=== PATIENT | male | born 1960 | race Caucasian/White ===

== ENCOUNTER 2017-01-01 01:27 | Inpatient (IN) | payer OTHER ==
[2017-01-01] VITALS (10 sets, daily range): BP systolic 116–182; BP diastolic 67–79; PULSE 49–77; RESP 15–20; TEMP 97–98.5; O2SAT 96–100
[~2017-01-01] VITALS: Ht 185.4 cm; Wt 95.9 kg
[2017-01-01] MEDS ORDERED: ONDANSETRON HCL 4 MG/2 ML VIAL IVP ONE (01:45)
[2017-01-01] MEDS ORDERED: SODIUM CHLORIDE 0.9% FLUSH 10 ML FLUSH IV FLUSH PRN ×2 (01:45→05:30)
[2017-01-01] MEDS ORDERED: ALUMINUM/MAGNESIUM/SIMETH 30 ML CUP PO ONE (01:45)
[2017-01-01] MEDS ORDERED: LIDOCAINE VISCOUS 2% SOLN 15 ML UDC PO ONE (01:45)
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
[2017-01-01 02:26] LABS: AUTOMATED NEUTROPHIL # 12.6 TH/MM3 (1.8-7.7); BASOPHIL # 0.1 TH/MM3 (0-0.2); BASOPHIL % 0.8 % (0.0-2.0); EOSINOPHIL # 0.1 TH/MM3 (0-0.4); EOSINOPHIL % 0.5 % (0.0-4.0); HEMATOCRIT 43.5 % (39.0-51.0); HEMO FLAGS DIFF FINAL; LYMPH % 4.8 % (9.0-44.0); LYMPHOCYTE # 0.7 TH/MM3 (1.0-4.8); MEAN CELL VOLUME 84.9 FL (80.0-100.0); MEAN CORPUSCULAR HEMOGLOBIN 30.3 PG (27.0-34.0); MEAN CORPUSCULAR HGB CONC 35.7 % (32.0-36.0); MONO % 6.4 % (0.0-8.0); NEUT % 87.5 % (16.0-70.0); PLATELET COUNT 157 TH/MM3 (150-450); RED BLOOD COUNT 5.13 MIL/MM3 (4.50-5.90); RED CELL DISTRIBUTION WIDTH 12.7 % (11.6-17.2); WHITE BLOOD COUNT 14.4 TH/MM3 (4.0-11.0)
[2017-01-01 02:44] LABS: ALT (GPT) 53 U/L (12-78); ANION GAP 9 MEQ/L (5-15); AST (GOT) 20 U/L (15-37); BICARBONATE 26.8 MEQ/L (21.0-32.0); BLOOD UREA NITROGEN 22 MG/DL (7-18); CHLORIDE 105 MEQ/L (98-107); GLOMERULAR FILTRATION RATE 76 ML/MIN (>89); POTASSIUM 3.9 MEQ/L (3.5-5.1); SODIUM (NA) 141 MEQ/L (136-145)
[2017-01-01 02:48] LABS: ALKALINE PHOSPHATASE 55 U/L (45-117); TOTAL BILIRUBIN ADULT 0.5 MG/DL (0.2-1.0)
[2017-01-01] MEDS ORDERED: SODIUM CHLOR 0.9% 1000 ML INJ 1,000 ML IV ONE (03:00)
--- NOTE | 2017-01-01 04:53 | RADRPT ---
EXAM DATE/TIME: 01/01/2017 03:54 [place] COMPARISON: No previous studies available for comparison. INDICATIONS : Severe epigastric pain. Elevated lipase. ORAL CONTRAST: No oral contrast ingested. RADIATION DOSE: 13.28 CTDIvol (mGy) MEDICAL HISTORY : None SURGICAL HISTORY : None. ENCOUNTER: Initial ACUITY: 1 day PAIN SCALE: 10/10 LOCATION: Epigastric. TECHNIQUE: Volumetric scanning of the abdomen and pelvis was performed. Using automated exposure control and ad justment of the mA and/or kV according to patient size, radiation dose was kept as low as reasonably achievable to obtain optimal diagnostic quality images. DICOM format image data is available electro nically for review and comparison. FINDINGS: LOWER LUNGS: The visualized lower lungs are clear. LIVER: Diffuse decreased density throughout the liver characteristic of steatosis. No focal lesions seen on this noncontrast study. No calcified gallstones. SPLEEN: Normal size without lesion. PANCREAS: There is induration of the fat about the tail of the pancreas and in the fat between the spleen and s tomach. There is also fluid tracking along the margin of the anterior pararenal space on the left si de extending into the left paracolic gutter. The no dilation of the pancreatic duct. KIDNEYS: No evidence of hydronephrosis on either side. Symmetric renal size. 2 mm nonobstructing stone lower pole left kidney. No calcifications along the course of either ureter. ADRENAL GLANDS: Within normal limits. VASCULAR: There is no aortic aneurysm. BOWEL/MESENTERY: No dilated loops of small or large bowel. ABDOMINAL WALL: Within normal limits. RETROPERITONEUM: There are a few perigastric lymph nodes measuring up to 1 cm in size. Central mesenteric lymph nodes measure up to 1 cm. BLADDER: No wall thickening or mass. REPRODUCTIVE: Within normal limits. INGUINAL: There is no lymphadenopathy or hernia. MUSCULOSKELETAL: Within normal limits for patient age. CONCLUSION: 1. Induration of the fat surrounding the tail the pancreas with some fluid tracking along the anterio r pararenal space into the left paracolic gutter. Findings do suggest pancreatitis. 2. Nonspecific mildly prominent lymph nodes in the perigastric and central mesentery. 3. Steatosis of the liver. Jonathan Gaona MD on January 01, 2017 at 4:42 Board Certified Radiologist. This report was verified electronically.
[2017-01-01] MEDS ORDERED: NALOXONE HCL 0.4 MG/ML AMP IV PRN (05:30)
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
[2017-01-01] MEDS: SODIUM CHLOR 0.9% 1000 ML INJ 1,000 ML IV SCH ×2 (06:08→15:19)
[2017-01-01] MEDS: HYDROmorphone HCL PF 1 MG/ML VIAL IV PUSH PRN ×3 (06:09→14:24)
[2017-01-01] MEDS: ENOXAPARIN SODIUM 40 MG/0.4 ML SYRINGE SQ SCH (06:51)
--- NOTE | 2017-01-01 08:23 | HHI.PR ---
Subjective Remarks looks fairly comfortable. no nausea or vomiting. abdominal pain is fairly controlled. Objective Vitals Vital Signs Date Time Temp Pulse Resp B/P Pulse Ox O2 Delivery O2 Flow Rate FiO2 01/01/17 06:40 98.0 63 18 130/76 96 01/01/17 06:38 58 01/01/17 05:59 66 18 143/73 97 01/01/17 01:51 18 100 Room Air 01/01/17 01:27 98.5 77 20 182/79 100 Room Air Result Diagram: 01/01/17 0155 01/01/17 0155 Imaging Last Impressions Abdomen/Pelvis CT 01/01/175 Signed Impressions: Service Date/Time: Sunday, January 01, 2017 03:54 - CONCLUSION: 1. Induration of the fat surrounding the tail the pancreas with some fluid tracking along the anterior pararenal space into the left paracolic gutter. Findings do suggest pancreatitis. 2. Nonspecific mildly prominent lymph nodes in the perigastric and central mesentery. 3. Steatosis of the liver. Jonathan Gaona MD Objective Remarks GENERAL: This is a well-nourished, well-developed patient, in no apparent distress. CARDIOVASCULAR: Regular rate and regular rhythm with systolic murmur in LSB RESPIRATORY: Clear to auscultation. Breath sounds equal bilaterally. No wheezes , rales, or rhonchi. GASTROINTESTINAL: Abdomen soft, mild generalized tenderness, nondistended. Normal, active bowel sounds MUSCULOSKELETAL: Extremities without clubbing, cyanosis, or edema. NEURO: Alert & Oriented x4 to person, place, time, situation. Moves all ext x4 Procedures none Medications and IVs Current Medications Ondansetron HCl (Zofran Inj) 4 mg ONCE ONCE IVP Last administered on 02:00; Start 01/01/17 at 01:45; Stop 01/01/17 at 01:46; Status DC Sodium Chloride (NS Flush) 2 ml UNSCH PRN IV FLUSH FLUSH AFTER USING IV ACCESS ; Start 01/01/17 at 01:45; Stop 01/01/17 at 05:22; Status DC Al Hydrox/Mg Hydrox/Simethicone (Mag-Al Plus Susp Liq) 30 ml ONCE ONCE PO Last administered on 01/01/17 01:52; Start 01/01/17 at 01:45; Stop 01/01/17 at 01:46; Status DC Lidocaine HCl 15 ml 15 ml ONCE ONCE PO Last administered on 01/01/17 01:52; Start 01/01/17 at 01:45; Stop 01/01/17 at 01:46; Status DC Sodium Chloride 1,000 ml @ 999 mls/hr BOLUS ONCE IV Last administered on 01/01 03:01; Start 01/01/17 at 03:00; Stop 01/01/17 at 04:00; Status DC Sodium Chloride (NS 1000 ml Inj) 1,000 ml @ 100 mls/hr Q10H IV Last administered on 01/01/17 06:08; Start 01/01/17 at 05:19 Sodium Chloride (NS Flush) 2 ml UNSCH PRN IV FLUSH FLUSH AFTER USING IV ACCESS ; Start 01/01/17 at 05:30 Sodium Chloride (NS Flush) 2 ml BID IV FLUSH ; Start 01/01/17 at 09:00 Naloxone HCl (Narcan Inj) 0.4 mg UNSCH PRN IV SEE LABEL COMMENTS; Start at 05:30 Hydromorphone HCl (Dilaudid Pf Inj) 0.5 mg Q4H PRN IV PUSH pain >5 Last administered on 01/01/17 06:09; Start 01/01/17 at 06:00 Enoxaparin Sodium (Lovenox Inj) 40 mg Q24H SQ Last administered on 01/01/17 06 :51; Start 01/01/17 at 06:15 A/P Assessment and Plan A/P Severe Pancreatitis due to alcohol abuse - Lipase . - IVF hydration with NS at 100 cc/hr - clear liquid diet - Dilaudid 0.5 mg IV q4h PRN pain - monitor vital signs q4h alcohol abuse start on CIWA protocol and thiamine- counselled on drinking cessation Heart murmur, systolic - 2D echocardiogram to assess cardiac structure and function in a patient reporting shortness of breath and requiring aggressive IVF hydration for pancreatitis DVT prophylaxis - Lovenox 40 mg subq q24h Kyle Andrade MD Jan 01, 2017 08:23
[2017-01-01] MEDS ORDERED: LORazepam 2 MG/ML VIAL IV PUSH PRN ×4 (08:30)
[2017-01-01] MEDS ORDERED: LORazepam 1 MG TAB PO PRN (08:30)
[2017-01-01] MEDS ORDERED: FLUMAZENIL 0.5 MG/5 ML VIAL IV PUSH PRN (08:30)
[2017-01-01] MEDS ORDERED: LORazepam 2 MG TAB PO PRN (08:30)
[2017-01-01] MEDS: SODIUM CHLORIDE 0.9% FLUSH 10 ML FLUSH IV FLUSH SCH ×2 (09:00→21:00)
[2017-01-01] MEDS: THIAMINE INJ 100 MG in SODIUM CHLORIDE 0.9% INJ 100 ML IV SCH (10:06)
[2017-01-01] MEDS ORDERED: DOCUSATE SODIUM 100 MG CAP PO PRN (11:00)
[2017-01-01] MEDS: ONDANSETRON HCL 4 MG/2 ML VIAL IV PUSH PRN (14:31)
--- NOTE | 2017-01-01 16:03 | ECHRPT ---
Indication: Shortness of breath, Cardiac murmur, unspecified CONCLUSIONS Normal left ventricular size. Wall thickness is normal. The left ventricular systolic function is grossly normal on limited imaging. No regional wall motion abnormalities are present. Left ventricular diastolic function parameters are normal. Appears to be tricuspid aortic valve. Mild aortic insufficiency. The inferior vena cava is dilated. There is greater than 50% respiratory change in dimension of the inferior vena cava (normal). BP: 130 / 76 HR: 63 Rhythm: Sinus MEASUREMENTS (Male / Female) Normal Values Technical Quality:Poor 2D ECHO LV Diastolic Diameter PLAX 5.7 cm 4.2 - 5.9 / 3.9 - 5.3 cm LV Systolic Diameter PLAX 3.6 cm IVS Diastolic Thickness 1.0 cm 0.6 - 1.0 / 0.6 - 0.9 cm LVPW Diastolic Thickness 1.0 cm 0.6 - 1.0 / 0.6 - 0.9 cm LV Relative Wall Thickness 0.3 LVOT Diameter 2.2 cm Aortic Root Diameter 3.3 cm LA Systolic Diameter LX 3.8 cm 3.0 - 4.0 / 2.7 - 3.8 cm M-MODE AV Cusp Separation MM 2.2 cm DOPPLER AV Peak Velocity 174.0 cm/s AV Peak Gradient 12.1 mmHg AV Mean Gradient 6.0 mmHg AV Velocity Time Integral 33.9 cm LVOT Peak Velocity 162.0 cm/s LVOT Peak Gradient 10.5 mmHg LVOT Velocity Time Integral 31.2 cm LVOT Cardiac Index 3267.8 cm/minm AV Area Cont Eq vti 3.5 cm AV Area Cont Eq pk 3.5 cm Mitral E Point Velocity 107.0 cm/s Mitral A Point Velocity 68.6 cm/s Mitral E to A Ratio 1.6 LV E' Lateral Velocity 17.8 cm/s Mitral E to LV E' Lateral Ratio 6.0 LV E' Septal Velocity 10.8 cm/s Mitral E to LV E' Septal Ratio 9.9 TR Peak Velocity 209.0 cm/s TR Peak Gradient 17.5 mmHg PV Peak Velocity 68.4 cm/s PV Peak Gradient 1.9 mmHg FINDINGS LEFT VENTRICLE Normal left ventricular size. Wall thickness is normal. The left ventricular systolic function is grossly normal on limited imaging. No regional wall motion abnormalities are present. Left ventricular diastolic function parameters are normal. RIGHT VENTRICLE Normal right ventricular size and systolic function. LEFT ATRIUM The left atrial size is mildly dilated. RIGHT ATRIUM The right atrial size is mildly dilated. AORTIC VALVE Appears to be tricuspid aortic valve. Mild aortic insufficiency. TRICUSPID VALVE Structurally normal tricuspid valve. There is trace tricuspid valve regurgitation. Normal estimated pulmonary pressures. VESSELS The inferior vena cava is dilated. There is greater than 50% respiratory change in dimension of the inferior vena cava (normal). PERICARDIUM No pericardial effusion. Luc Feliz MD (Electronically Signed) Final Date:01 January 2017 16:02
[2017-01-01] MEDS ORDERED: PROCHLORPERAZINE INJ 10 MG/2 ML VIAL IV PRN (18:00)
--- NOTE | 2017-01-01 23:13 | EKG ---
Date Performed: 01/01/2017 Time Performed: 01:52:14 PTAGE: 56 years EKG: Sinus rhythm NORMAL ECG NO PREVIOUS TRACING DOCTOR: Dandre Ford Interpretating Date/Time 01/01/2017 23:11:15
[2017-01-02] VITALS: BP 121/70; PULSE 58; RESP 17; TEMP 97.9; O2SAT 96
[2017-01-02] MEDS: SODIUM CHLOR 0.9% 1000 ML INJ 1,000 ML IV SCH ×3 (02:06→21:09)
[2017-01-02] MEDS: ACETAMINOPHEN 325 MG TAB PO PRN ×3 (02:26→21:10)
[2017-01-02] MEDS: ENOXAPARIN SODIUM 40 MG/0.4 ML SYRINGE SQ SCH (06:22)
--- NOTE | 2017-01-02 07:45 | HHI.PR ---
Subjective Remarks resting comfortably with no distress. abdominal pain has improved. no nausea, vomiting or other complaints. Objective Vitals Vital Signs Date Time Temp Pulse Resp B/P Pulse Ox O2 Delivery O2 Flow Rate FiO2 01/02/17 00:00 97.9 58 17 121/70 96 01/01/17 20:16 55 01/01/17 20:00 97.6 56 17 135/77 97 01/01/17 16:30 97.3 49 16 126/72 97 01/01/17 12:00 97.3 49 15 116/67 99 01/01/17 08:00 97.0 57 16 148/68 97 I/O 01/01/17 01/01/17 01/01/17 01/02/17 01/02/17 01/02/17 07:00 15:00 23:00 07:00 15:00 23:00 Intake Total 210 ml 420 ml 1200 ml Balance 210 ml 420 ml 1200 ml Intake Oral 210 ml 420 ml IV Total 1200 ml # Voids 2 1 1 Result Diagram: 01/01/17 0155 01/01/17 0155 Imaging Last Impressions Abdomen/Pelvis CT 01/01/17 0255 Signed Impressions: Service Date/Time: Sunday, January 01, 2017 03:54 - CONCLUSION: 1. Induration of the fat surrounding the tail the pancreas with some fluid tracking along the anterior pararenal space into the left paracolic gutter. Findings do suggest pancreatitis. 2. Nonspecific mildly prominent lymph nodes in the perigastric and central mesentery. 3. Steatosis of the liver. Jonathan Gaona MD Objective Remarks GENERAL: This is a well-nourished, well-developed patient, in no apparent distress. CARDIOVASCULAR: Regular rate and regular rhythm with systolic murmur in LSB RESPIRATORY: Clear to auscultation. Breath sounds equal bilaterally. No wheezes , rales, or rhonchi. GASTROINTESTINAL: Abdomen soft, minimal generalized tenderness, nondistended. Normal, active bowel sounds MUSCULOSKELETAL: Extremities without clubbing, cyanosis, or edema. NEURO: Alert & Oriented x4 to person, place, time, situation. Moves all ext x4 Procedures none Medications and IVs Current Medications Ondansetron HCl (Zofran Inj) 4 mg ONCE ONCE IVP Last administered on t 02:00; Start 01/01/17 at 01:45; Stop 01/01/17 at 01:46; Status DC Sodium Chloride (NS Flush) 2 ml UNSCH PRN IV FLUSH FLUSH AFTER USING IV ACCESS ; Start 01/01/17 at 01:45; Stop 01/01/17 at 05:22; Status DC Al Hydrox/Mg Hydrox/Simethicone (Mag-Al Plus Susp Liq) 30 ml ONCE ONCE PO Last administered on 01/01/17 01:52; Start 01/01/17 at 01:45; Stop 01/01/17 at 01:46; Status DC Lidocaine HCl 15 ml 15 ml ONCE ONCE PO Last administered on 01/01/17 01:52; Start 01/01/17 at 01:45; Stop 01/01/17 at 01:46; Status DC Sodium Chloride 1,000 ml @ 999 mls/hr BOLUS ONCE IV Last administered on 01/01 03:01; Start 01/01/17 at 03:00; Stop 01/01/17 at 04:00; Status DC Sodium Chloride (NS 1000 ml Inj) 1,000 ml @ 100 mls/hr Q10H IV Last administered on 01/02/17 02:06; Start 01/01/17 at 05:19 Sodium Chloride (NS Flush) 2 ml UNSCH PRN IV FLUSH FLUSH AFTER USING IV ACCESS ; Start 01/01/17 at 05:30 Sodium Chloride (NS Flush) 2 ml BID IV FLUSH ; Start 01/01/17 at 09:00 Naloxone HCl (Narcan Inj) 0.4 mg UNSCH PRN IV SEE LABEL COMMENTS; Start at 05:30 Hydromorphone HCl (Dilaudid Pf Inj) 0.5 mg Q4H PRN IV PUSH pain >5 Last administered on 01/01/17 14:24; Start 01/01/17 at 06:00 Enoxaparin Sodium (Lovenox Inj) 40 mg Q24H SQ Last administered on 01/02/17 06 :22; Start 01/01/17 at 06:15 Ondansetron HCl (Zofran Inj) 4 mg Q8H PRN IV PUSH NAUSEA Last administered on 14:31; Start 01/01/17 at 08:15 Flumazenil (Romazicon Inj) 0.2 mg Q1M PRN IV PUSH SEE LABEL COMMENTS; Start at 08:30 Lorazepam (Ativan) 1 mg Q4H PRN PO CIWA 8 - 10; Start 01/01/17 at 08:30 Lorazepam (Ativan Inj) 1 mg Q4H PRN IV PUSH CIWA 8 - 10; Start 01/01/17 at 08: 30 Lorazepam (Ativan) 2 mg Q2H PRN PO CIWA 11-14; Start 01/01/17 at 08:30 Lorazepam (Ativan Inj) 2 mg Q2H PRN IV PUSH CIWA 11-14; Start 01/01/17 at 08:30 Lorazepam (Ativan Inj) 2 mg Q1H PRN IV PUSH CIWA 15-20; Start 01/01/17 at 08:30 Lorazepam 2 mg 2 mg Q15M PRN IV PUSH CIWA > 20; Start 01/01/17 at 08:30 Thiamine HCl/ Sodium Chloride (Thiamine Inj/NS Inj) 101 ml @ 101 mls/hr DAILY IV Last administered on 01/01/17 10:06; Start 01/01/17 at 10:00 Docusate Sodium (Colace) 100 mg BID PRN PO CONSTIPATION Last administered on 14:24; Start 01/01/17 at 11:00 Prochlorperazine Edisylate (Compazine Inj) 5 mg Q8H PRN IV SEE LABEL COMMENTS Last administered on 01/01/17 18:00; Start 01/01/17 at 18:00 Acetaminophen (Tylenol) 650 mg Q4H PRN PO fever >101, headaches Last administered on 01/02/17 02:26; Start 01/02/17 at 02:30 A/P Assessment and Plan A/P Severe Pancreatitis due to alcohol abuse- clinically improving. - IVF hydration with NS at 100 cc/hr - will advance the diet slowly - Dilaudid 0.5 mg IV q4h PRN pain - monitor vital signs q4h alcohol abuse start on CIWA protocol and thiamine- counselled on drinking cessation Heart murmur, systolic - 2D echocardiogram with normal LV function and no regional wall motion abnormalities DVT prophylaxis - Lovenox 40 mg subq q24h Discharge Planning possible dc home tomorrow if stable. Kyle Andrade MD Jan 02, 2017 07:45
[2017-01-02 08:00] VITALS: BP 124/70; PULSE 53; RESP 18; TEMP 98.1; O2SAT 98
[2017-01-02] MEDS: THIAMINE INJ 100 MG in SODIUM CHLORIDE 0.9% INJ 100 ML IV SCH (08:00)
[2017-01-02] MEDS: SODIUM CHLORIDE 0.9% FLUSH 10 ML FLUSH IV FLUSH SCH ×2 (08:01→21:00)
[2017-01-02 08:10] LABS: BASOPHIL % 0.4 % (0.0-2.0); EOSINOPHIL # 0.2 TH/MM3 (0-0.4); EOSINOPHIL % 2.1 % (0.0-4.0); HEMATOCRIT 41.4 % (39.0-51.0); HEMO FLAGS DIFF FINAL; LYMPH % 17.7 % (9.0-44.0); LYMPHOCYTE # 1.8 TH/MM3 (1.0-4.8); MEAN CELL VOLUME 85.8 FL (80.0-100.0); MEAN CORPUSCULAR HEMOGLOBIN 30.5 PG (27.0-34.0); MEAN CORPUSCULAR HGB CONC 35.5 % (32.0-36.0); NEUT % 68.8 % (16.0-70.0); PLATELET COUNT 137 TH/MM3 (150-450); RED BLOOD COUNT 4.82 MIL/MM3 (4.50-5.90); RED CELL DISTRIBUTION WIDTH 12.9 % (11.6-17.2); WHITE BLOOD COUNT 10.2 TH/MM3 (4.0-11.0)
[2017-01-02 08:22] VITALS: PULSE 54
[2017-01-02 08:50] LABS: ALKALINE PHOSPHATASE 52 U/L (45-117); ALT (GPT) 42 U/L (12-78); ANION GAP 7 MEQ/L (5-15); AST (GOT) 17 U/L (15-37); BICARBONATE 26.6 MEQ/L (21.0-32.0); BLOOD UREA NITROGEN 12 MG/DL (7-18); CHLORIDE 106 MEQ/L (98-107); GLOMERULAR FILTRATION RATE 109 ML/MIN (>89); POTASSIUM 3.7 MEQ/L (3.5-5.1); SODIUM (NA) 140 MEQ/L (136-145); TOTAL BILIRUBIN ADULT 0.9 MG/DL (0.2-1.0)
[2017-01-02 12:00] VITALS: BP 124/57; PULSE 62; RESP 18; TEMP 98.2; O2SAT 96
[2017-01-02] MEDS: ONDANSETRON HCL 4 MG/2 ML VIAL IV PUSH PRN ×2 (12:31→23:55)
[2017-01-02] MEDS: HYDROmorphone HCL PF 1 MG/ML VIAL IV PUSH PRN ×3 (12:42→23:55)
[2017-01-02 14:00] VITALS: BP 121/62; PULSE 56; RESP 16; TEMP 98.7; O2SAT 98
[2017-01-02 20:46] VITALS: BP 121/66; PULSE 56; RESP 16; TEMP 98; O2SAT 97
[2017-01-03] VITALS: BP 137/65; PULSE 60; RESP 16; TEMP 98.3; O2SAT 96
[2017-01-03] MEDS: HYDROmorphone HCL PF 1 MG/ML VIAL IV PUSH PRN (05:25)
[2017-01-03] MEDS: SODIUM CHLOR 0.9% 1000 ML INJ 1,000 ML IV SCH (05:27)
[2017-01-03] MEDS: ENOXAPARIN SODIUM 40 MG/0.4 ML SYRINGE SQ SCH ×2 (05:27→05:30)
[2017-01-03 08:00] VITALS: BP 124/71; PULSE 52; RESP 18; TEMP 98.6; O2SAT 98
[2017-01-03] MEDS: THIAMINE INJ 100 MG in SODIUM CHLORIDE 0.9% INJ 100 ML IV SCH (08:18)
[2017-01-03] MEDS: ACETAMINOPHEN 325 MG TAB PO PRN ×2 (08:21→12:57)
--- NOTE | 2017-01-03 08:24 | HHI.PR ---
Subjective Remarks in no distress. has mild abdominal pain- no nausea or vomiting. afebrile. Objective Vitals Vital Signs Date Time Temp Pulse Resp B/P Pulse Ox O2 Delivery O2 Flow Rate FiO2 01/03/17 00:00 98.3 60 16 137/65 96 01/02/17 20:46 98.0 56 16 121/66 97 01/02/17 14:00 98.7 56 16 121/62 98 01/02/17 12:00 98.2 62 18 124/57 96 I/O 01/02/17 01/02/17 01/02/17 01/03/17 01/03/17 01/03/17 07:00 15:00 23:00 07:00 15:00 23:00 Intake Total 1200 ml 480 ml 1440 ml Balance 1200 ml 480 ml 1440 ml Intake Oral 480 ml 240 ml IV Total 1200 ml 1200 ml # Voids 1 2 Result Diagram: 01/02/17 0652 01/02/17 0652 Imaging Last Impressions Abdomen/Pelvis CT 01/01/17 0255 Signed Impressions: Service Date/Time: Sunday, January 01, 2017 03:54 - CONCLUSION: 1. Induration of the fat surrounding the tail the pancreas with some fluid tracking along the anterior pararenal space into the left paracolic gutter. Findings do suggest pancreatitis. 2. Nonspecific mildly prominent lymph nodes in the perigastric and central mesentery. 3. Steatosis of the liver. Jonathan Gaona MD Objective Remarks GENERAL: This is a well-nourished, well-developed patient, in no apparent distress. CARDIOVASCULAR: Regular rate and regular rhythm with systolic murmur in LSB RESPIRATORY: Clear to auscultation. Breath sounds equal bilaterally. No wheezes , rales, or rhonchi. GASTROINTESTINAL: Abdomen soft, minimal generalized tenderness, nondistended. Normal, active bowel sounds MUSCULOSKELETAL: Extremities without clubbing, cyanosis, or edema. NEURO: Alert & Oriented x4 to person, place, time, situation. Moves all ext x4 Procedures none Medications and IVs Current Medications Ondansetron HCl (Zofran Inj) 4 mg ONCE ONCE IVP Last administered on t 02:00; Start 01/01/17 at 01:45; Stop 01/01/17 at 01:46; Status DC Sodium Chloride (NS Flush) 2 ml UNSCH PRN IV FLUSH FLUSH AFTER USING IV ACCESS ; Start 01/01/17 at 01:45; Stop 01/01/17 at 05:22; Status DC Al Hydrox/Mg Hydrox/Simethicone (Mag-Al Plus Susp Liq) 30 ml ONCE ONCE PO Last administered on 01/01/17 01:52; Start 01/01/17 at 01:45; Stop 01/01/17 at 01:46; Status DC Lidocaine HCl 15 ml 15 ml ONCE ONCE PO Last administered on 01/01/17 01:52; Start 01/01/17 at 01:45; Stop 01/01/17 at 01:46; Status DC Sodium Chloride 1,000 ml @ 999 mls/hr BOLUS ONCE IV Last administered on 01/01 03:01; Start 01/01/17 at 03:00; Stop 01/01/17 at 04:00; Status DC Sodium Chloride (NS 1000 ml Inj) 1,000 ml @ 100 mls/hr Q10H IV Last administered on 01/03/17 05:27; Start 01/01/17 at 05:19 Sodium Chloride (NS Flush) 2 ml UNSCH PRN IV FLUSH FLUSH AFTER USING IV ACCESS ; Start 01/01/17 at 05:30 Sodium Chloride (NS Flush) 2 ml BID IV FLUSH ; Start 01/01/17 at 09:00 Naloxone HCl (Narcan Inj) 0.4 mg UNSCH PRN IV SEE LABEL COMMENTS; Start at 05:30 Hydromorphone HCl (Dilaudid Pf Inj) 0.5 mg Q4H PRN IV PUSH pain >5 Last administered on 01/03/17 05:25; Start 01/01/17 at 06:00 Enoxaparin Sodium (Lovenox Inj) 40 mg Q24H SQ Last administered on 01/02/17 06 :22; Start 01/01/17 at 06:15 Ondansetron HCl (Zofran Inj) 4 mg Q8H PRN IV PUSH NAUSEA Last administered on 23:55; Start 01/01/17 at 08:15 Flumazenil (Romazicon Inj) 0.2 mg Q1M PRN IV PUSH SEE LABEL COMMENTS; Start at 08:30 Lorazepam (Ativan) 1 mg Q4H PRN PO CIWA 8 - 10; Start 01/01/17 at 08:30 Lorazepam (Ativan Inj) 1 mg Q4H PRN IV PUSH CIWA 8 - 10; Start 01/01/17 at 08: 30 Lorazepam (Ativan) 2 mg Q2H PRN PO CIWA 11-14; Start 01/01/17 at 08:30 Lorazepam (Ativan Inj) 2 mg Q2H PRN IV PUSH CIWA 11-14; Start 01/01/17 at 08:30 Lorazepam (Ativan Inj) 2 mg Q1H PRN IV PUSH CIWA 15-20; Start 01/01/17 at 08:30 Lorazepam 2 mg 2 mg Q15M PRN IV PUSH CIWA > 20; Start 01/01/17 at 08:30 Thiamine HCl/ Sodium Chloride (Thiamine Inj/NS Inj) 101 ml @ 101 mls/hr DAILY IV Last administered on 01/02/17 08:00; Start 01/01/17 at 10:00 Docusate Sodium (Colace) 100 mg BID PRN PO CONSTIPATION Last administered on 14:24; Start 01/01/17 at 11:00 Prochlorperazine Edisylate (Compazine Inj) 5 mg Q8H PRN IV SEE LABEL COMMENTS Last administered on 01/01/17 18:00; Start 01/01/17 at 18:00 Acetaminophen (Tylenol) 650 mg Q4H PRN PO fever >101, headaches Last administered on 01/02/17 21:10; Start 01/02/17 at 02:30 A/P Assessment and Plan A/P Severe Pancreatitis due to alcohol abuse- has much improved. - IVF hydration with NS at 100 cc/hr - will advance the diet . -continue with pain control - monitor vital signs q4h alcohol abuse start on CIWA protocol and thiamine- counselled on drinking cessation Heart murmur, systolic - 2D echocardiogram with normal LV function and no regional wall motion abnormalities DVT prophylaxis - Lovenox 40 mg subq q24h Discharge Planning possible dc home later this afternoon if tolerates the diet. see med list. advised to stop drinking. f/u; pcp. d/w the patient. Kyle Andrade MD Jan 03, 2017 08:24
[2017-01-03] MEDS ORDERED: VITA100T54 PO (08:26)
[2017-01-03] MEDS ORDERED: MULT-65 PO (08:26)
[2017-01-03] MEDS ORDERED: PROT40TA PO (08:26)
--- NOTE | 2017-01-03 08:26 | HHI.DCPOC ---
Discharge Care Plan Diagnosis: (1) Pancreatitis Your Health Problems Are: Inflammation Goals to Promote Your Health * To prevent worsening of your condition and complications * To maintain your health at the optimal level Directions to Meet Your Goals Take your medications as prescribed Follow your dietary instruction Follow activity as directed Keep your appointments as scheduled Take your immunizations and boosters as scheduled If your symptoms worsen call your PCP, if no PCP go to Urgent Care Center or Emergency Room Smoking is Dangerous to Your Health. Avoid second hand smoke Call the 24-hour hour crisis hotline for domestic abuse at Kyle Andrade MD Jan 03, 2017 08:26
--- NOTE | 2017-01-03 08:27 | HHI.DS ---
Discharge Summary Admission Date Jan 01, 2017 at 05:23 Discharge Date: Jan 03, 2017 Admitting Diagnosis ACUTE PANCREATITIS (1) Pancreatitis ICD Code: K85.90 Diagnosis: Principal Procedures none Brief History - From Admission Written by Luciana Andrade, acting as scribe for Dr. Haskins on 01/01/17 at 05:56. Patient reports abdominal pain that did not resolve after bowel movement. Reports severe abdominal pain. Lipase . Pain started at 2200 at 12/31/16. States that he ate two big slices of pizza pie and rum and coke. Attempted to vomit, did not resolve symptoms. Has never had pancreatitis previously. Drinks alcohol 2 - 3 times per week, regularly. Denies fever but states he felt hot. Feels a little short of breath now. Denies nausea, vomiting, black/red stool, blood in urine, or chest pain. Denies shortness of breath with exertion; has a heart murmur and states he "may have heard about that at some point in time" but does not think he's ever had an echocardiogram. . CBC/BMP: 01/02/17 0652 01/02/17 0652 Significant Findings Laboratory Tests Test 01/01/17 01/01/17 01/02/17 01/03/17 01:55 05:06 06:52 07:35 White Blood Count 14.4 TH/MM3 (4.0-11.0) Neutrophils (%) (Auto) 87.5 % (16.0-70.0) Lymphocytes (%) (Auto) 4.8 % (9.0-44.0) Neutrophils # (Auto) 12.6 TH/MM3 (1.8-7.7) Lymphocytes # (Auto) 0.7 TH/MM3 (1.0-4.8) Blood Urea Nitrogen 22 MG/DL (7-18) Estimat Glomerular Filtration 76 ML/MIN (>89) Rate Random Glucose 206 MG/DL (74-106) Troponin I LESS THAN 0.02 LESS THAN 0.02 NG/ML NG/ML (0.02-0.05) (0.02-0.05) Lipase U/L 2794 U/L 816 U/L (73-393) (73-393) (73-393) Platelet Count 137 TH/MM3 (150-450) Monocytes (%) (Auto) 11.0 % (0.0-8.0) Monocytes # (Auto) 1.1 TH/MM3 (0-0.9) Imaging Last Impressions Abdomen/Pelvis CT 01/01/17 0255 Signed Impressions: Service Date/Time: Sunday, January 01, 2017 03:54 - CONCLUSION: 1. Induration of the fat surrounding the tail the pancreas with some fluid tracking along the anterior pararenal space into the left paracolic gutter. Findings do suggest pancreatitis. 2. Nonspecific mildly prominent lymph nodes in the perigastric and central mesentery. 3. Steatosis of the liver. Jonathan Gaona MD PE at Discharge GENERAL: This is a well-nourished, well-developed patient, in no apparent distress. CARDIOVASCULAR: Regular rate and regular rhythm with systolic murmur in LSB RESPIRATORY: Clear to auscultation. Breath sounds equal bilaterally. No wheezes , rales, or rhonchi. GASTROINTESTINAL: Abdomen soft, minimal generalized tenderness, nondistended. Normal, active bowel sounds MUSCULOSKELETAL: Extremities without clubbing, cyanosis, or edema. NEURO: Alert & Oriented x4 to person, place, time, situation. Moves all ext x4 Hospital Course Severe Pancreatitis due to alcohol abuse- clinically improving. - IVF hydration with NS at 100 cc/hr - will advance the diet slowly -continue with pain control - monitor vital signs q4h alcohol abuse start on CIWA protocol and thiamine- counselled on drinking cessation Heart murmur, systolic - 2D echocardiogram with normal LV function and no regional wall motion abnormalities DVT prophylaxis - Lovenox 40 mg subq q24h Pt Condition on Discharge: Stable Discharge Disposition: Discharge Home Discharge Time: <= 30 minutes Discharge Instructions DIET: Follow Instructions for: Low Fat Diet Activities you can perform: Regular-No Restrictions Follow up Referrals: PCP Follow-up New Medications: Multiple Vitamin (Multi-Vitamin Daily) 1 Tab Tab 1 TAB PO DAILY Nutritional Supplement Days 30 Ref 0 TAB Pantoprazole (Protonix) 40 Mg Tab 40 MG PO DAILY Reflux #14 Ref 0 TAB Thiamine (Vitamin B-1) 100 Mg Tab 100 MG PO DAILY Nutritional Supplement Days 30 Ref 0 TAB Minouei,Mohammadreza MD Jan 03, 2017 08:27
[2017-01-03] MEDS ORDERED: MULTIVITAMIN TAB PO SCH (09:00)
[2017-01-03 12:00] VITALS: BP 151/69; PULSE 51; RESP 18; TEMP 97.9; O2SAT 97
[2017-01-03] MEDS: SODIUM CHLORIDE 0.9% FLUSH 10 ML FLUSH IV FLUSH SCH (12:58)
[2017-01-03 16:00] VITALS: PULSE 67; RESP 20; TEMP 98.2; O2SAT 100
== END 2017-01-03 16:47 | disposition home or self-care (01) | DRG 439 ==
LOC: NEPC 01:27 → NEDA 05:23 → OBSVTOIN 05:23 → HOCA 06:55
PROVIDERS: ADMIT Internal Medicine; ATTEND Internal Medicine
DX: K85.20 Alcohol induced acute pancreatitis without necrosis or infection (principal); F10.188 Alcohol abuse with other alcohol-induced disorder; R01.1 Cardiac murmur, unspecified
CPT/HCPCS: 74176; 80053; 80307; 83690; 84484; 85025; 93005; 93306; J0780; J1170; J1650; J2405; J3411; J7030

== ENCOUNTER → 2017-05-14 | Emergency (ER) | payer OTHER ==
[~2017-05-14] VITALS: Ht 185.4 cm; Wt 100.0 kg
[~2017-05-14] MED LIST: CYCL10TA PO; MORPHINE SULFATE 4 MG/ML INJ IV PUSH ONE; ONDANSETRON HCL 4 MG/2 ML VIAL IV PUSH ONE; PERC10TA27 PO; SODIUM CHLOR 0.9% 1000 ML INJ 1,000 ML IV ONE; VOLT100T; ZOFR4TAB3 SL
[2017-05-14 11:51] VITALS: BP 135/92; PULSE 122; RESP 20; TEMP 98.6; O2SAT 94
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
[2017-05-14 13:34] LABS: AUTOMATED NEUTROPHIL # 15.1 TH/MM3 (1.8-7.7); BASOPHIL % 0.3 % (0.0-2.0); EOSINOPHIL # 0.1 TH/MM3 (0-0.4); EOSINOPHIL % 0.6 % (0.0-4.0); HEMATOCRIT 48.7 % (39.0-51.0); HEMO FLAGS DIFF FINAL; LYMPH % 5.7 % (9.0-44.0); MEAN CELL VOLUME 87.7 FL (80.0-100.0); MEAN CORPUSCULAR HEMOGLOBIN 29.9 PG (27.0-34.0); MEAN CORPUSCULAR HGB CONC 34.1 % (32.0-36.0); MONO % 10.3 % (0.0-8.0); NEUT % 83.1 % (16.0-70.0); PLATELET COUNT 207 TH/MM3 (150-450); RED BLOOD COUNT 5.55 MIL/MM3 (4.50-5.90); RED CELL DISTRIBUTION WIDTH 13.1 % (11.6-17.2); WHITE BLOOD COUNT 18.1 TH/MM3 (4.0-11.0)
[2017-05-14 13:59] LABS: ALKALINE PHOSPHATASE 55 U/L (45-117); ALT (GPT) 61 U/L (12-78); TOTAL BILIRUBIN ADULT 1.3 MG/DL (0.2-1.0)
[2017-05-14 14:03] LABS: ANION GAP 7 MEQ/L (5-15); AST (GOT) 24 U/L (15-37); BICARBONATE 29.1 MEQ/L (21.0-32.0); BLOOD UREA NITROGEN 26 MG/DL (7-18); CHLORIDE 99 MEQ/L (98-107); GLOMERULAR FILTRATION RATE 78 ML/MIN (>89); POTASSIUM 3.9 MEQ/L (3.5-5.1); SODIUM (NA) 135 MEQ/L (136-145)
[2017-05-14 14:22] VITALS: BP 128/70; PULSE 85; RESP 17; TEMP 99.3; O2SAT 97
== END | disposition home or self-care (01) ==
LOC: NEPD 11:50
DX: K85.90 Acute pancreatitis without necrosis or infection, unspecified (principal); D72.829 Elevated white blood cell count, unspecified; Z87.19 Personal history of other diseases of the digestive system
CPT/HCPCS: 80053; 83690; 85025; 96361; 96374; 96375; 99284; J2270; J2405; J7030

== ENCOUNTER 2017-05-15 15:09 | Observation (INO) | payer OTHER ==
[~2017-05-15] VITALS: Ht 185.4 cm; Wt 100.0 kg
[~2017-05-15 15:09] MED LIST changes: -CYCL10TA PO; -MORPHINE SULFATE 4 MG/ML INJ IV PUSH ONE; -ONDANSETRON HCL 4 MG/2 ML VIAL IV PUSH ONE; -SODIUM CHLOR 0.9% 1000 ML INJ 1,000 ML IV ONE; -ZOFR4TAB3 SL
[2017-05-15] MEDS ORDERED: IOHEXOL 350 MG/ML 10 ML VIAL (for RAD DIAG) IVCONTRAST ONE (15:10)
[2017-05-15 15:15] VITALS: BP 128/70; PULSE 84; RESP 12; TEMP 100.1; O2SAT 98
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
[2017-05-15] MEDS ORDERED: SODIUM CHLOR 0.9% 1000 ML INJ 1,000 ML IV ONE (17:15)
[2017-05-15 17:21] LABS: AUTOMATED NEUTROPHIL # 11.7 TH/MM3 (1.8-7.7); BASOPHIL # 0.1 TH/MM3 (0-0.2); BASOPHIL % 0.5 % (0.0-2.0); EOSINOPHIL # 0.2 TH/MM3 (0-0.4); EOSINOPHIL % 1.4 % (0.0-4.0); HEMATOCRIT 43.5 % (39.0-51.0); HEMO FLAGS DIFF FINAL; LYMPH % 5.3 % (9.0-44.0); LYMPHOCYTE # 0.8 TH/MM3 (1.0-4.8); MEAN CELL VOLUME 88.4 FL (80.0-100.0); MEAN CORPUSCULAR HEMOGLOBIN 30.8 PG (27.0-34.0); MEAN CORPUSCULAR HGB CONC 34.8 % (32.0-36.0); NEUT % 81.8 % (16.0-70.0); PLATELET COUNT 171 TH/MM3 (150-450); RED BLOOD COUNT 4.92 MIL/MM3 (4.50-5.90); RED CELL DISTRIBUTION WIDTH 12.9 % (11.6-17.2); WHITE BLOOD COUNT 14.3 TH/MM3 (4.0-11.0)
[2017-05-15 17:38] LABS: ALT (GPT) 44 U/L (12-78); ANION GAP 10 MEQ/L (5-15); AST (GOT) 19 U/L (15-37); BICARBONATE 28.4 MEQ/L (21.0-32.0); BLOOD UREA NITROGEN 19 MG/DL (7-18); CHLORIDE 100 MEQ/L (98-107); GLOMERULAR FILTRATION RATE 97 ML/MIN (>89); POTASSIUM 3.9 MEQ/L (3.5-5.1); SODIUM (NA) 138 MEQ/L (136-145)
[2017-05-15 17:41] LABS: ALKALINE PHOSPHATASE 65 U/L (45-117); TOTAL BILIRUBIN ADULT 1.3 MG/DL (0.2-1.0)
[2017-05-15] MEDS ORDERED: ONDANSETRON HCL 4 MG/2 ML VIAL IV PUSH ONE (18:00)
[2017-05-15] MEDS ORDERED: MORPHINE SULFATE 2 MG/ML INJ IV PUSH ONE (18:00)
--- NOTE | 2017-05-15 19:02 | RADRPT ---
EXAM DATE/TIME: 05/15/2017 18:25 [facility] COMPARISON: CT ABDOMEN & PELVIS W/O CONTRAST, May 13, 2017, 2:48. INDICATIONS : Abdomen pain nausea vomiting,fever IV CONTRAST: 71 cc Omnipaque 350 (iohexol) IV ORAL CONTRAST: No oral contrast ingested. RADIATION DOSE: 7.5 CTDIvol (mGy) MEDICAL HISTORY : Pancreatitis. SURGICAL HISTORY : None. ENCOUNTER: Initial ACUITY: 1 day PAIN SCALE: 9/10 LOCATION: Abdomen TECHNIQUE: Volumetric scanning of the abdomen and pelvis was performed. Using automated exposure control and ad justment of the mA and/or kV according to patient size, radiation dose was kept as low as reasonably achievable to obtain optimal diagnostic quality images. DICOM format image data is available electro nically for review and comparison. FINDINGS: LOWER LUNGS: There are tiny bilateral pleural effusions with bibasilar atelectasis. LIVER: The liver is diffusely low in attenuation. No mass or ductal dilatation. Portal vein is patent. Gallb ladder is unremarkable. SPLEEN: The spleen is enlarged measuring 15 cm in anterior to posterior dimension. No splenic lesion. Splenic vein is patent. PANCREAS: There is an acute inflammatory process involving the pancreas with surrounding inflammatory changes t he retroperitoneal fat. A small amount of free fluid is seen within the retroperitoneum approaching t he splenic hilum. The degree of inflammatory change is slightly more pronounced on the prior exam. No pseudocyst. No ductal dilatation. No appreciable hemorrhage. KIDNEYS: Normal in size and shape. There is no mass, stone or hydronephrosis. ADRENAL GLANDS: Within normal limits. VASCULAR: There is no aortic aneurysm. BOWEL/MESENTERY: The stomach, small bowel, and colon demonstrate no acute abnormality. There is no free intraperitone al air or fluid. ABDOMINAL WALL: Within normal limits. RETROPERITONEUM: There is no lymphadenopathy. BLADDER: No wall thickening or mass. REPRODUCTIVE: Within normal limits. INGUINAL: There is no lymphadenopathy or hernia. MUSCULOSKELETAL: Within normal limits for patient age. CONCLUSION: 1. Acute pancreatitis with slightly more pronounced inflammatory change compared to the prior study 2 days ago. No pseudocyst. 2. Mild splenomegaly. 3. Hepatic steatosis. 4. Tiny bilateral pleural effusions and associated atelectasis. These are new. Jonathan Berg Jr., MD on May 15, 2017 at 18:58 Board Certified Radiologist. This report was verified electronically.
[2017-05-15 19:15] LABS: LACTIC ACID GHOST NOT REPORTABLE
[2017-05-15] MEDS ORDERED: CEFEPIME INJ 2,000 MG in SODIUM CHLORIDE 0.9% INJ 100 ML IV STA (19:17)
[2017-05-15] MEDS ORDERED: AZITHROMYCIN INJ 500 MG in SODIUM CHLOR 0.9% 250 ML INJ 250 ML IV STA (19:17)
--- NOTE | 2017-05-15 19:38 | RADRPT ---
EXAM DATE/TIME: 05/15/2017 19:16 [facility] COMPARISON: No previous studies available for comparison. INDICATIONS : Short of breath and fever. MEDICAL HISTORY : Pancreatitis. SURGICAL HISTORY : None. ENCOUNTER: Initial ACUITY: 1 day PAIN SCORE: 0/10 LOCATION: Bilateral chest FINDINGS: A single view of the chest demonstrates the lungs to be symmetrically aerated without evidence of mas s, infiltrate or effusion. The cardiomediastinal contours are unremarkable. Osseous structures are intact. CONCLUSION: No acute disease. Jonathan Berg Jr., MD on May 15, 2017 at 19:37 Board Certified Radiologist. This report was verified electronically.
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
[2017-05-15] MEDS ORDERED: ACETAMINOPHEN 325 MG TAB PO PRN (20:00)
[2017-05-15] MEDS ORDERED: LORazepam 2 MG/ML VIAL IV PUSH PRN ×4 (20:00)
[2017-05-15] MEDS ORDERED: LORazepam 1 MG TAB PO PRN (20:00)
[2017-05-15] MEDS ORDERED: BISACODYL 10 MG SUPP RECTAL PRN (20:00)
[2017-05-15] MEDS ORDERED: ONDANSETRON HCL 4 MG/2 ML VIAL IVP PRN (20:00)
[2017-05-15] MEDS ORDERED: LORazepam 2 MG TAB PO PRN (20:00)
[2017-05-15] MEDS ORDERED: LACTULOSE SYRUP 20 GM/30 ML CUP PO PRN (20:00)
[2017-05-15] MEDS ORDERED: SENNOSIDES 8.6 MG TAB PO PRN (20:00)
[2017-05-15] MEDS ORDERED: MAGNESIUM HYDROXIDE SUSP 30 ML CUP PO PRN (20:00)
[2017-05-15] MEDS ORDERED: SODIUM CHLORIDE 0.9% FLUSH 10 ML FLUSH IV FLUSH PRN (20:00)
[2017-05-15] MEDS ORDERED: FLUMAZENIL 0.5 MG/5 ML VIAL IV PUSH PRN (20:00)
[2017-05-15] MEDS ORDERED: HALOPERIDOL LACTATE 5 MG/ML AMP IM PRN (20:00)
[2017-05-15] MEDS: SODIUM CHLOR 0.9% 1000 ML INJ 1,000 ML IV SCH (20:34)
[2017-05-15 20:35] VITALS: BP 134/70; PULSE 81; RESP 18; O2SAT 100
[2017-05-15] MEDS: MORPHINE SULFATE 4 MG/ML INJ IV PUSH PRN ×2 (20:35→22:58)
[2017-05-15] MEDS: SODIUM CHLORIDE 0.9% FLUSH 10 ML FLUSH IV FLUSH SCH (21:00)
[2017-05-15] MEDS: DOCUSATE SODIUM 50 MG/SENNA 8.6 MG TAB PO SCH (21:00)
[2017-05-15 21:41] VITALS: BP 128/65; PULSE 79; RESP 16; TEMP 99.2; O2SAT 95
[2017-05-16] MEDS: PIPERACIL-TAZO 4.5 GM PREMIX 100 ML IV SCH ×4 (00:50→17:36)
[2017-05-16 00:54] VITALS: BP 115/55; PULSE 75; RESP 17; TEMP 99.4; O2SAT 97
[2017-05-16] MEDS: MORPHINE SULFATE 4 MG/ML INJ IV PUSH PRN ×5 (02:07→21:33)
[2017-05-16 04:07] VITALS: BP 142/69; PULSE 82; RESP 17; TEMP 99.3; O2SAT 98
[2017-05-16] MEDS: SODIUM CHLOR 0.9% 1000 ML INJ 1,000 ML IV SCH ×2 (05:24→17:40)
[2017-05-16 08:38] LABS: AUTOMATED NEUTROPHIL # 10.6 TH/MM3 (1.8-7.7); BASOPHIL # 0.1 TH/MM3 (0-0.2); BASOPHIL % 0.6 % (0.0-2.0); EOSINOPHIL # 0.3 TH/MM3 (0-0.4); EOSINOPHIL % 2.2 % (0.0-4.0); HEMATOCRIT 39.5 % (39.0-51.0); HEMO FLAGS DIFF FINAL; LYMPH % 8.5 % (9.0-44.0); LYMPHOCYTE # 1.2 TH/MM3 (1.0-4.8); MEAN CORPUSCULAR HEMOGLOBIN 30.5 PG (27.0-34.0); MEAN CORPUSCULAR HGB CONC 34.7 % (32.0-36.0); MONO % 11.9 % (0.0-8.0); NEUT % 76.8 % (16.0-70.0); PLATELET COUNT 158 TH/MM3 (150-450); RED BLOOD COUNT 4.49 MIL/MM3 (4.50-5.90); RED CELL DISTRIBUTION WIDTH 12.9 % (11.6-17.2); WHITE BLOOD COUNT 13.8 TH/MM3 (4.0-11.0)
[2017-05-16] MEDS ORDERED: RESP: ALBUTEROL 2.5 MG/3 ML NEB (PRN) NEB (09:15)
[2017-05-16] MEDS: DOCUSATE SODIUM 50 MG/SENNA 8.6 MG TAB PO SCH ×2 (09:30→21:33)
[2017-05-16] MEDS: THIAMINE HCL 100 MG TAB PO SCH (09:30)
[2017-05-16] MEDS: SODIUM CHLORIDE 0.9% FLUSH 10 ML FLUSH IV FLUSH SCH ×2 (09:30→21:33)
[2017-05-16] MEDS: MULTIVITAMINS/MINERALS THERAPEUTIC TAB PO SCH (09:31)
[2017-05-16] MEDS: FOLIC ACID 1 MG TAB PO SCH (09:31)
[2017-05-16 09:41] LABS: CHLORIDE 102 MEQ/L (98-107); POTASSIUM 3.7 MEQ/L (3.5-5.1); SODIUM (NA) 135 MEQ/L (136-145)
[2017-05-16 09:53] LABS: ALKALINE PHOSPHATASE 69 U/L (45-117); ALT (GPT) 38 U/L (12-78); ANION GAP 9 MEQ/L (5-15); AST (GOT) 21 U/L (15-37); BLOOD UREA NITROGEN 15 MG/DL (7-18); GLOMERULAR FILTRATION RATE 121 ML/MIN (>89); TOTAL BILIRUBIN ADULT 1.1 MG/DL (0.2-1.0)
[2017-05-16 11:43] VITALS: BP 114/67; PULSE 72; RESP 22; TEMP 98.2; O2SAT 96
--- NOTE | 2017-05-16 13:46 | HHI.PR ---
Subjective Remarks Follow-up pancreatitis. Improving abdominal pain requesting food. Also reports of lower back pain with stiffness. No radiation of pain, numbness and incontinence. Discussed with RN Objective Vitals Vital Signs Date Time Temp Pulse Resp B/P (MAP) Pulse Ox O2 Delivery O2 Flow Rate FiO2 05/16/17 11:43 98.2 72 22 114/67 (83) 96 05/16/17 04:07 99.3 82 17 142/69 (93) 98 05/16/17 00:54 99.4 75 17 115/55 (75) 97 05/15/17 22:19 05/15/17 21:41 99.2 79 16 128/65 (86) 95 05/15/17 21:01 18 05/15/17 20:35 81 18 134/70 (91) 100 Room Air 05/15/17 15:15 100.1 84 12 128/70 (89) 98 I/O 05/15/17 05/15/17 05/15/17 05/16/17 05/16/17 05/16/17 07:00 15:00 23:00 07:00 15:00 23:00 Intake Total 1000 ml Output Total 200 ml Balance 1000 ml -200 ml Intake IV Total 1000 ml Output Urine Total 200 ml Result Diagram: 05/16/1740 05/16/1740 Imaging Last Impressions Chest X-Ray 05/15/171914 Signed Impressions: Service Date/Time: May 19:16 - CONCLUSION: No acute disease. Jonathan Berg Jr., MD Abdomen/Pelvis CT 05/15/17 1756 Signed Impressions: Service Date/Time: May 18:25 - CONCLUSION: 1. Acute pancreatitis with slightly more pronounced inflammatory change compared to the prior study 2 days ago. No pseudocyst. 2. Mild splenomegaly. 3. Hepatic steatosis. 4. Tiny bilateral pleural effusions and associated atelectasis. These are new. Jonathan Berg Jr., MD Objective Remarks GENERAL: Middle-aged white male in no acute distress. HEENT: PERRLA, EOMI. No scleral icterus or conjunctival pallor. No lid lag or facial droop. CARDIOVASCULAR: Regular rate and rhythm. No obvious murmurs to auscultation. No chest tenderness to palpation. RESPIRATORY: No obvious rhonchi or wheezing. Clear to auscultation. Breath sounds equal bilaterally. GASTROINTESTINAL: Abdomen soft, epigastric tenderness to palpation, nondistended. BS normal. MUSCULOSKELETAL: Extremities without clubbing, cyanosis, or edema. No obvious deformities. NEUROLOGICAL: Awake, alert and oriented x4. No focal neurologic deficits. Moving both upper and lower extremities spontaneously. Procedures none A/P Problem List: (1) Pancreatitis ICD Code: K85.90 - Acute pancreatitis without necrosis or infection, unspecified Status: Acute (2) Fever ICD Code: R50.9 - Fever, unspecified Status: Acute (3) Alcohol use ICD Code: Z78.9 - Other specified health status Assessment and Plan 1. Pancreatitis: Improving advance diet continue IV fluids and pain management with oxycodone and morphine. Counseled regarding narcotics 2. Fever: Temp 100.1, WBC 14, down from 18 on 05/14/17, CXR w/ no acute findings, images reviewed by me. In light of pancreatitis and fever w/ leukocytosis will continue w/ IV Abx. Monitor vitals, repeat labs in am. 3. Alcohol Use: Reports symptoms starting after drinking, however does not drink daily. Ativan prn, Seizure Precautions, MVT/Thiamine/Folate replacement. Counseled 4. Lower back pain. Heat and muscle relaxer. Out of bed. DVT Prophylaxis: SCD/Teds. Discharge Planning Possible discharge in the morning Chandu Oneal MD May 16, 2017 13:46
[2017-05-16] MEDS: CYCLOBENZAPRINE HCL 10 MG TAB PO PRN ×2 (14:23→22:57)
[2017-05-16 16:37] VITALS: BP 129/73; PULSE 79; RESP 20; TEMP 97.6; O2SAT 97
[2017-05-16 21:06] VITALS: BP 137/69; PULSE 85; RESP 18; TEMP 98; O2SAT 97
[2017-05-17] MEDS: PIPERACIL-TAZO 4.5 GM PREMIX 100 ML IV SCH ×2 (00:38→05:22)
[2017-05-17] MEDS: MORPHINE SULFATE 4 MG/ML INJ IV PUSH PRN ×3 (00:38→09:15)
[2017-05-17] MEDS: SODIUM CHLOR 0.9% 1000 ML INJ 1,000 ML IV SCH ×2 (00:39→11:48)
[2017-05-17 00:43] VITALS: BP 126/74; PULSE 76; RESP 18; TEMP 98.5; O2SAT 97
[2017-05-17 04:20] VITALS: BP 117/66; PULSE 70; RESP 18; TEMP 98.8; O2SAT 96
[2017-05-17 08:00] VITALS: BP 127/72; PULSE 73; RESP 18; TEMP 98.3; O2SAT 98
[2017-05-17] MEDS: SODIUM CHLORIDE 0.9% FLUSH 10 ML FLUSH IV FLUSH SCH (08:26)
[2017-05-17] MEDS: MULTIVITAMINS/MINERALS THERAPEUTIC TAB PO SCH (08:26)
[2017-05-17] MEDS: FOLIC ACID 1 MG TAB PO SCH (08:26)
[2017-05-17] MEDS: THIAMINE HCL 100 MG TAB PO SCH (08:26)
[2017-05-17] MEDS: DOCUSATE SODIUM 50 MG/SENNA 8.6 MG TAB PO SCH (08:26)
[2017-05-17] MEDS: CYCLOBENZAPRINE HCL 10 MG TAB PO PRN (08:27)
[2017-05-17 09:17] LABS: AUTOMATED NEUTROPHIL # 10.4 TH/MM3 (1.8-7.7); BASOPHIL # 0.1 TH/MM3 (0-0.2); BASOPHIL % 0.6 % (0.0-2.0); EOSINOPHIL # 0.4 TH/MM3 (0-0.4); EOSINOPHIL % 2.7 % (0.0-4.0); HEMATOCRIT 39.4 % (39.0-51.0); HEMO FLAGS DIFF FINAL; LYMPH % 8.9 % (9.0-44.0); LYMPHOCYTE # 1.2 TH/MM3 (1.0-4.8); MEAN CORPUSCULAR HEMOGLOBIN 30.9 PG (27.0-34.0); MEAN CORPUSCULAR HGB CONC 35.1 % (32.0-36.0); MONO % 12.6 % (0.0-8.0); NEUT % 75.2 % (16.0-70.0); PLATELET COUNT 199 TH/MM3 (150-450); RED BLOOD COUNT 4.48 MIL/MM3 (4.50-5.90); WHITE BLOOD COUNT 13.9 TH/MM3 (4.0-11.0)
[2017-05-17 09:55] LABS: ALKALINE PHOSPHATASE 111 U/L (45-117); ALT (GPT) 87 U/L (12-78); ANION GAP 9 MEQ/L (5-15); AST (GOT) 45 U/L (15-37); BICARBONATE 28.4 MEQ/L (21.0-32.0); BLOOD UREA NITROGEN 14 MG/DL (7-18); CHLORIDE 100 MEQ/L (98-107); GLOMERULAR FILTRATION RATE 93 ML/MIN (>89); MAGNESIUM 2.3 MG/DL (1.5-2.5); POTASSIUM 3.8 MEQ/L (3.5-5.1); SODIUM (NA) 137 MEQ/L (136-145); TOTAL BILIRUBIN ADULT 0.8 MG/DL (0.2-1.0)
[2017-05-17] MEDS ORDERED: CYCL10TA PO (10:58)
[2017-05-17] MEDS ORDERED: PERC10TA27 PO (11:01)
--- NOTE | 2017-05-17 11:02 | HHI.DCPOC ---
Discharge Care Plan Diagnosis: (1) Back pain (2) Pancreatitis (3) Alcohol use Goals to Promote Your Health * To prevent worsening of your condition and complications * To maintain your health at the optimal level Directions to Meet Your Goals Take your medications as prescribed Follow your dietary instruction Follow activity as directed Keep your appointments as scheduled Take your immunizations and boosters as scheduled If your symptoms worsen call your PCP, if no PCP go to Urgent Care Center or Emergency Room Smoking is Dangerous to Your Health. Avoid second hand smoke Call the 24-hour hour crisis hotline for domestic abuse at Jannette Rosario PA-C May 17, 2017 11:02 am
[2017-05-17 11:47] VITALS: BP 118/61; PULSE 90; RESP 18; TEMP 99.2; O2SAT 97
--- NOTE | 2017-05-17 13:52 | HHI.DS ---
Discharge Summary Admission Date May 15, 2017 at 19:32 Discharge Date: May 17, 2017 Admitting Diagnosis acute pancreatitis, sepsis, pneumonia (1) Pancreatitis ICD Code: K85.90 - Acute pancreatitis without necrosis or infection, unspecified Diagnosis: Principal Status: Acute (2) Fever ICD Code: R50.9 - Fever, unspecified Diagnosis: Principal Status: Acute (3) Alcohol use ICD Code: Z78.9 - Other specified health status Diagnosis: Principal Procedures none Brief History - From Admission This is a 56-year-old male with no significant PMH of present to the ER with complaints of epigastric abdominal pain in addition to nausea and vomiting. Seen in ER on 05/13 for similar complaints, found to have Pancreatitis, Lipase 61 ,522, CT Abd/Pelvis w/ acute pancreatitis, no pseudocyst. Was d/c'd from ER, returned on 05/14/17 for similar, Lipase 4019 at that time. Returns now w/ ongoing abdominal pain, nausea/vomiting and decreased PO intake. States symptoms started after drinking alcohol. On arrival, BP 128/70, HR 84, O2 sat 98% on RA, Temp 100.1. Chemistry baseline. Lactic Acid 2.6. Lipase 411. CBC unremarkable except for WBC 14.3, previously 18.1 on 05/14/17. CXR with no acute findings. CT Abd/Pelvis w/ acute pancreatitis slightly more pronounced inflammatory change compared to prior study one no pseudocyst. CBC/BMP: 05/17/17 0820 05/17/17 0820 Significant Findings Laboratory Tests Test 05/15/17 17:00 05/15/17 23:05 05/16/17 07:40 05/17/17 08:20 White Blood Count 14.3 TH/MM3 (4.0-11.0) 13.8 TH/MM3 (4.0-11.0) 13.9 TH/MM3 (4.0-11.0) Neutrophils (%) (Auto) 81.8 % (16.0-70.0) 76.8 % (16.0-70.0) 75.2 % (16.0-70.0) Lymphocytes (%) (Auto) 5.3 % (9.0-44.0) 8.5 % (9.0-44.0) 8.9 % (9.0-44.0) Monocytes (%) (Auto) 11.0 % (0.0-8.0) 11.9 % (0.0-8.0) 12.6 % (0.0-8.0) Neutrophils # (Auto) 11.7 TH/MM3 (1.8-7.7) 10.6 TH/MM3 (1.8-7.7) 10.4 TH/MM3 (1.8-7.7) Lymphocytes # (Auto) 0.8 TH/MM3 (1.0-4.8) Monocytes # (Auto) 1.6 TH/MM3 (0-0.9) 1.6 TH/MM3 (0-0.9) 1.7 TH/MM3 (0-0.9) Blood Urea Nitrogen 19 MG/DL (7-18) Random Glucose 145 MG/DL (74-106) 141 MG/DL (74-106) 150 MG/DL (74-106) Total Bilirubin 1.3 MG/DL (0.2-1.0) 1.1 MG/DL (0.2-1.0) Lactic Acid Level 2.6 mmol/L (0.4-2.0) Lipase 411 U/L (73-393) 492 U/L (73-393) Red Blood Count 4.49 MIL/MM3 (4.50-5.90) 4.48 MIL/MM3 (4.50-5.90) Albumin 3.0 GM/DL (3.4-5.0) 3.0 GM/DL (3.4-5.0) Calcium Level 8.1 MG/DL (8.5-10.1) Sodium Level 135 MEQ/L (136-145) Aspartate Amino Transf (AST/SGOT) 45 U/L (15-37) Alanine Aminotransferase (ALT/SGPT) 87 U/L (12-78) Imaging Last Impressions Chest X-Ray 05/15/171914 Signed Impressions: Service Date/Time: May 19:16 - CONCLUSION: No acute disease. Jonathan Berg Jr., MD Abdomen/Pelvis CT 05/15/17 7563 Signed Impressions: Service Date/Time: May 18:25 - CONCLUSION: 1. Acute pancreatitis with slightly more pronounced inflammatory change compared to the prior study 2 days ago. No pseudocyst. 2. Mild splenomegaly. 3. Hepatic steatosis. 4. Tiny bilateral pleural effusions and associated atelectasis. These are new. Jonathan Berg Jr., MD PE at Discharge GENERAL: Middle-aged white male in no acute distress. HEENT: PERRLA, EOMI. No scleral icterus or conjunctival pallor. No lid lag or facial droop. CARDIOVASCULAR: Regular rate and rhythm. No obvious murmurs to auscultation. No chest tenderness to palpation. RESPIRATORY: No obvious rhonchi or wheezing. Clear to auscultation. Breath sounds equal bilaterally. GASTROINTESTINAL: Abdomen soft, epigastric tenderness to palpation, nondistended. BS normal. MUSCULOSKELETAL: Extremities without clubbing, cyanosis, or edema. No obvious deformities. NEUROLOGICAL: Awake, alert and oriented x4. No focal neurologic deficits. Moving both upper and lower extremities spontaneously. Hospital Course 1. Pancreatitis: Resolved tolerating regular diet discontinue IV fluids. Continue pain management with oxycodone and morphine. Counseled regarding narcotics 2. Fever: Temp 100.1, WBC 14, down from 18 on 05/14/17, CXR w/ no acute findings, images reviewed by me. Resolved 3. Alcohol Use: Reports symptoms starting after drinking, however does not drink daily. Ativan prn, Seizure Precautions, MVT/Thiamine/Folate replacement. Counseled 4. Lower back pain. Improving. Heat and muscle relaxer. Out of bed. DVT Prophylaxis: SCD/Teds. Pt Condition on Discharge: Stable Discharge Disposition: Discharge Home Discharge Time: > 30 minutes Discharge Instructions DIET: Follow Instructions for: As Tolerated, No Restrictions Activities you can perform: Regular-No Restrictions Follow up Referrals: PCP Follow-up - 1 Week with [facility] New Medications: Cyclobenzaprine (Flexeril) 10 Mg Tab 10 MG PO Q8H PRN for muscle spasms, #10 TAB Changed Medications: Oxycodone-Acetaminophen (Percocet) 10-325 mg Tab 1 TAB PO Q6HR PRN for pain, #10 TAB 0 Refills (Changed from: Q4H; 28) Discontinued Medications: Diclofenac Sodium (Voltaren-Xr) 100 Mg Tab.er.24h Chandu Oneal MD May 17, 2017 13:52
== END 2017-05-17 13:23 | disposition home or self-care (01) ==
LOC: NEPE 15:09 → NEDA 19:32 → NEPHCDU 21:04
PROVIDERS: ADMIT Internal Medicine; ATTEND Internal Medicine
DX: K85.90 Acute pancreatitis without necrosis or infection, unspecified (principal); R50.9 Fever, unspecified; R06.02 Shortness of breath; M54.5 Low back pain; J90 Pleural effusion, not elsewhere classified; R16.1 Splenomegaly, not elsewhere classified; K76.0 Fatty (change of) liver, not elsewhere classified
CPT/HCPCS: 71010; 74177; 80053; 82948; 83605; 83690; 83735; 85025; 87040; 94150; 96361; 96365; 96366; 96375; 96376; 99285; G0378; J0456; J0692; J2270; J2405; J2543; J7030; J7050; Q9967

== ENCOUNTER 2017-12-02 20:36 | Inpatient (IN) | payer OTHER ==
[~2017-12-02 20:36] MED LIST changes: +CYCL10TA PO; -VOLT100T
[2017-12-02 20:40] VITALS: BP 159/66; PULSE 59; RESP 18; TEMP 97.5; O2SAT 99
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
[2017-12-02] MEDS ORDERED: SODIUM CHLOR 0.9% 1000 ML INJ 1,000 ML IV SCH (20:59)
[2017-12-02] MEDS ORDERED: diphenhydrAMINE HCL 50 MG/ML VIAL IV PUSH ONE (21:00)
[2017-12-02] MEDS ORDERED: LIDOCAINE VISCOUS 2% SOLN 15 ML UDC PO ONE (21:00)
[2017-12-02] MEDS ORDERED: PROCHLORPERAZINE INJ 10 MG/2 ML VIAL IV PUSH ONE (21:00)
[2017-12-02] MEDS ORDERED: ALUMINUM/MAGNESIUM/SIMETH 30 ML CUP PO ONE (21:00)
[2017-12-02] MEDS ORDERED: KETOROLAC TROMETHAMINE 30 MG/ML (IVP) VIAL IVP ONE (21:00)
[2017-12-02] MEDS: SODIUM CHLORIDE 0.9% FLUSH 10 ML FLUSH IV FLUSH PRN (22:09)
[2017-12-02 22:29] LABS: AUTOMATED NEUTROPHIL # 12.4 TH/MM3 (1.8-7.7); BASOPHIL # 0.1 TH/MM3 (0-0.2); BASOPHIL % 0.6 % (0.0-2.0); EOSINOPHIL # 0.1 TH/MM3 (0-0.4); EOSINOPHIL % 0.9 % (0.0-4.0); HEMATOCRIT 43.4 % (39.0-51.0); HEMOGLOBIN 15.1 GM/DL (13.0-17.0); LYMPH % 6.8 % (9.0-44.0); MEAN CELL VOLUME 85.4 FL (80.0-100.0); MEAN CORPUSCULAR HEMOGLOBIN 29.7 PG (27.0-34.0); MEAN CORPUSCULAR HGB CONC 34.8 % (32.0-36.0); MEAN PLATELET VOLUME 10.1 FL (7.0-11.0); MONO % 8.2 % (0.0-8.0); MONOCYTE # 1.2 TH/MM3 (0-0.9); NEUT % 83.5 % (16.0-70.0); PLATELET COUNT 154 TH/MM3 (150-450); RED BLOOD COUNT 5.08 MIL/MM3 (4.50-5.90); RED CELL DISTRIBUTION WIDTH 12.8 % (11.6-17.2); WHITE BLOOD COUNT 14.9 TH/MM3 (4.0-11.0)
[2017-12-02 22:43] LABS: ALBUMIN 4.1 GM/DL (3.4-5.0); AST (GOT) 29 U/L (15-37); BICARBONATE 30.4 MEQ/L (21.0-32.0); BLOOD UREA NITROGEN 25 MG/DL (7-18); CALCIUM 8.8 MG/DL (8.5-10.1); CHLORIDE 103 MEQ/L (98-107); CREATININE 1.18 MG/DL (0.60-1.30); GLUCOSE,RANDOM 174 MG/DL (74-106); SODIUM (NA) 140 MEQ/L (136-145)
[2017-12-02 22:44] LABS: ALT (GPT) 57 U/L (12-78)
[2017-12-02 22:47] LABS: ALKALINE PHOSPHATASE 57 U/L (45-117); TOTAL BILIRUBIN ADULT 0.3 MG/DL (0.2-1.0); TOTAL PROTEIN 7.4 GM/DL (6.4-8.2)
[2017-12-02] MEDS ORDERED: IOHEXOL 350 MG/ML 10 ML VIAL (for RAD DIAG) IVCONTRAST ONE (23:20)
--- NOTE | 2017-12-02 23:22 | RADRPT ---
EXAM DATE: 12/02/2017 11:13 PM EDT AGE/SEX: 57 years / Male INDICATIONS: Upper abdominal pain. Patients lipase is elevated. CLINICAL DATA: This is the patient's initial encounter. Patient reports that signs and symptoms have been present for 1 day and indicates a pain score of 9/10. MEDICAL/SURGICAL HISTORY: Pancreatitis. None. ORAL CONTRAST: No oral contrast ingested. RADIATION DOSE: 7.64 CTDI (mGy) [place] [facility] [place]/15[place]. . TECHNIQUE: Multiple contiguous axial images were obtained through the abdomen and pelvis following b olus infusion of 95 ml Omnipaque 350 (iohexol) nonionic water-soluble contrast as a single exam dos e. No oral contrast ingested. Using automated exposure control and adjustment of the mA and/or kV ac cording to patient size, the radiation dose was kept as low as reasonably achievable to obtain optima l diagnostic quality images. FINDINGS: Abdomen CT: The spleen, kidneys, adrenals are unremarkable. There is inflammatory process surrounding the pancrea s to a moderate degree with inflammation extending into the lesser sac. The enhancement of the pancre as itself appears intact. The liver is diffusely fatty without focal lesions for technique. There i s no evidence for any appreciable pathological adenopathy, free fluid, or bowel obstruction. There i s slight scarring and/or atelectasis within lingula. Pelvic CT: There is no evidence for mass, abscess formation, or any significant adenopathy within the pelvis. T here is prominent fat within bilateral inguinal canals without evidence for bowel herniation. CONCLUSION: 1. Moderate degree of acute pancreatitis. The patient's prior study from 2016 also demonstrated acut e pancreatitis at that time. 2. Significant fatty infiltration of liver. Electronically signed by: Lillian Lowe MD 12/02/2017 11:20 PM EDT
[2017-12-02 23:25] LABS: INTERNATIONAL NORMALIZED RATIO 1.1 RATIO; PROTHROMBIN TIME - PATIENT 10.7 SEC (9.8-11.6)
--- NOTE | 2017-12-02 23:25 | HHI.HP ---
[facility] Service Family Medicine Primary Care Physician [facility] Admission Diagnosis Acute pancreatitis, Alcohol abuse Diagnoses: International Travel<30 Days: No Contact w/Intl Traveler<30days: No Known Affected Area: No History of Present Illness Patient is a 57 y/o M w/hx of alcohol abuse presenting w/severe upper abdominal pain. This afternoon, patient states he felt a sudden 6/10 mid, upper abdominal pain. Nothing made it better or worse. Drove himself to the ER, felt a little dizzy on the way. A little nausea but no vomiting. No appetite, diarrhea, cough, sob. No subjective or objective fevers but has felt chills. Still feels the pain, says it is coming and going. Last ate chicken noodle soup an hour before symptoms started. Has had pancreatitis before, so he knew he "needed to come to the hospital." Was last hospitalized for pancreatitis in May. Has been having recurrences for a year. Drinks frequently but is unable to narrow down the number. Used to drink a big bottle of rum every week. Review of Systems Constitutional: DENIES: Weight loss, Chills Endocrine: DENIES: Polyuria Eyes: DENIES: Blurred vision, Vision loss Ears, nose, mouth, throat: DENIES: Hearing loss Respiratory: DENIES: Cough, Shortness of breath Cardiovascular: DENIES: Chest pain Gastrointestinal: DENIES: Constipation, Diarrhea Genitourinary: DENIES: Urinary frequency, Urgency Musculoskeletal: DENIES: Joint pain Integumentary: DENIES: Abnormal pigmentation Hematologic/lymphatic: DENIES: Bruising Immunologic/allergic: DENIES: Eczema Neurologic: DENIES: Headache, Localized weakness, Poor Balance Past Family Social History Past Medical History Alcohol abuse Hx of pancreatitis (last in 05/2017) Past Surgical History Left Leg Surgery Left Shoulder Surgery Reported Medications Terazosin "once in a while" Allergies: Coded Allergies: No Known Allergies (Verified Allergy, Unknown, 12/02/17) Family History Mom:No h/o DM or CAD Dad: Diabetes Social History Lives in a house alone in [place] Occasional alcohol. Negative for tobacco. +Marijuana. Physical Exam Vital Signs Vital Signs Date Time Temp Pulse Resp B/P (MAP) Pulse Ox O2 Delivery O2 Flow Rate FiO2 12/02/17 20:40 97.5 59 18 159/66 (97) 99 Physical Exam GENERAL: This is a sun-tanned M resting in bed in no acute distress. Has occasional episodes of pain during which he is unable to continue conversation. SKIN: No rashes, ecchymoses or lesions. Cool and dry. HEAD: Atraumatic. Normocephalic. EYES: Pupils equal round and reactive. Extraocular motions intact. No scleral icterus. No injection or drainage. ENT: Uvula midline. Airway patent. NECK: Trachea midline. CARDIOVASCULAR: Regular rate and rhythm without murmurs, gallops, or rubs. RESPIRATORY: Clear to auscultation. Breath sounds equal bilaterally. No wheezes , rales, or rhonchi. GASTROINTESTINAL: Abdomen non-distended, tender in the upper quadrants (more significant in RUQ). +voluntary guarding. MUSCULOSKELETAL: Extremities without clubbing, cyanosis, or edema. NEUROLOGICAL: Awake and alert. No focal deficits. Motor and sensory grossly within normal limits. Normal speech. Laboratory Laboratory Tests Test 12/02/17 22:01 White Blood Count 14.9 Red Blood Count 5.08 Hemoglobin 15.1 Hematocrit 43.4 Mean Corpuscular Volume 85.4 Mean Corpuscular Hemoglobin 29.7 Mean Corpuscular Hemoglobin Concent 34.8 Red Cell Distribution Width 12.8 Platelet Count 154 Mean Platelet Volume 10.1 Neutrophils (%) (Auto) 83.5 Lymphocytes (%) (Auto) 6.8 Monocytes (%) (Auto) 8.2 Eosinophils (%) (Auto) 0.9 Basophils (%) (Auto) 0.6 Neutrophils # (Auto) 12.4 Lymphocytes # (Auto) 1.0 Monocytes # (Auto) 1.2 Eosinophils # (Auto) 0.1 Basophils # (Auto) 0.1 CBC Comment DIFF FINAL Differential Comment Blood Urea Nitrogen 25 Creatinine 1.18 Random Glucose 174 Total Protein 7.4 Albumin 4.1 Calcium Level 8.8 Alkaline Phosphatase 57 Aspartate Amino Transf (AST/SGOT) 29 Alanine Aminotransferase (ALT/SGPT) 57 Total Bilirubin 0.3 Sodium Level 140 Potassium Level 4.4 Chloride Level 103 Carbon Dioxide Level 30.4 Anion Gap 7 Lipase 13929 Result Diagram: 12/02/17220012/02/172200 Imaging Last Impressions Abdomen/Pelvis CT 12/02/172058 Signed Impressions: CONCLUSION: 1. Moderate degree of acute pancreatitis. The patient's prior study from 2017 also demonstrated acute pancreatitis at that time. 2. Significant fatty infiltration of liver. Course IV toradol, benadryl, prochlorperazine x1 in the ED. Caprini VTE Risk Assessment Caprini VTE Risk Assessment: No/Low Risk (score <= 1) Assessment and Plan Assessment and Plan 57 y/o w/hx of alcohol abuse admitted for pancreatitis. Code Status FULL Problem List: (1) Pancreatitis ICD Codes: K85.90 - Acute pancreatitis without necrosis or infection, unspecified Status: Acute Plan: Elevated WBC count and lipase Seen on CT of abdomen NPO IVF @150 mls/hr Protonix IV 40 mg BID Toradol for pain 1-5 Morphine pain 6-10 Morphine for breakthrough Zofran 4 mg PO Q6H PRN Trend lipase and WBC count LDH TGs (2) Alcohol abuse ICD Codes: F10.10 - Alcohol abuse, uncomplicated Status: Chronic Plan: CIWA protocol Rally pack Alcohol cessation counseling (3) FEN Plan: Fluids: @150 mls/hr (slightly higher than maintenance) Electrolytes: PRN Nutrition: NPO DVT prophy: not indicated Physician Certification 2 Midnight Certification Type: Admission for Inpatient Services Order for Inpatient Services The services are ordered in accordance with Medicare regulations or non- Medicare payer requirements, as applicable. In the case of services not specified as inpatient-only, they are appropriately provided as inpatient services in accordance with the 2-midnight benchmark. Estimated LOS (days): 2 2 days is the estimated time the patient will need to remain in the hospital, assuming treatment plan goals are met and no additional complications. Post-Hospital Plan: Not yet determined Problem Qualifiers (1) Pancreatitis: Qualified Codes: K85.90 - Acute pancreatitis without necrosis or infection, unspecified Tamra King MD R1 December 02, 2017 23:25
--- NOTE | 2017-12-02 23:34 | PD ---
Data Data Last Documented VS Vital Signs Date Time Temp Pulse Resp B/P (MAP) Pulse Ox O2 Delivery O2 Flow Rate FiO2 12/02/17 20:40 97.5 59 18 159/66 (97) 99 Orders Orders Complete Blood Count With Diff (12/02/17 20:59) Comprehensive Metabolic Panel (12/02/17 20:59) Lipase (12/02/17 20:59) Prothrombin Time / Inr (Pt) (12/02/17 20:59) Act Partial Throm Time (Ptt) (12/02/17 20:59) Ct Abd/Pel W Iv Contrast(Rout) (12/02/17 20:59) Iv Access Insert/Monitor (12/02/17 20:59) Ecg Monitoring (12/02/17 20:59) Oximetry (12/02/17 20:59) Sodium Chlor 0.9% 1000 Ml Inj (Ns 1000 M (12/02/17 20:59) Sodium Chloride 0.9% Flush (Ns Flush) (12/02/17 21:00) Ketorolac Inj (Toradol Inj) (12/02/17 21:00) Al-Mag Hy-Si 40-40-4 Mg/Ml Liq (Mag-Al P (12/02/17 21:00) Lidocaine 2% Viscous (Xylocaine 2% Visco (12/02/17 21:00) Prochlorperazine Inj (Compazine Inj) (12/02/17 21:00) Diphenhydramine Inj (Benadryl Inj) (12/02/17 21:00) Iohexol 350 Inj (Omnipaque 350 Inj) (12/02/17 23:20) Admit Order (Ed Use Only) (12/02/17 23:23) Labs Laboratory Tests Test 12/02/17 22:01 White Blood Count 14.9 TH/MM3 Red Blood Count 5.08 MIL/MM3 Hemoglobin 15.1 GM/DL Hematocrit 43.4 % Mean Corpuscular Volume 85.4 FL Mean Corpuscular Hemoglobin 29.7 PG Mean Corpuscular Hemoglobin Concent 34.8 % Red Cell Distribution Width 12.8 % Platelet Count 154 TH/MM3 Mean Platelet Volume 10.1 FL Neutrophils (%) (Auto) 83.5 % Lymphocytes (%) (Auto) 6.8 % Monocytes (%) (Auto) 8.2 % Eosinophils (%) (Auto) 0.9 % Basophils (%) (Auto) 0.6 % Neutrophils # (Auto) 12.4 TH/MM3 Lymphocytes # (Auto) 1.0 TH/MM3 Monocytes # (Auto) 1.2 TH/MM3 Eosinophils # (Auto) 0.1 TH/MM3 Basophils # (Auto) 0.1 TH/MM3 CBC Comment DIFF FINAL Differential Comment Blood Urea Nitrogen 25 MG/DL Creatinine 1.18 MG/DL Random Glucose 174 MG/DL Total Protein 7.4 GM/DL Albumin 4.1 GM/DL Calcium Level 8.8 MG/DL Alkaline Phosphatase 57 U/L Aspartate Amino Transf (AST/SGOT) 29 U/L Alanine Aminotransferase (ALT/SGPT) 57 U/L Total Bilirubin 0.3 MG/DL Sodium Level 140 MEQ/L Potassium Level 4.4 MEQ/L Chloride Level 103 MEQ/L Carbon Dioxide Level 30.4 MEQ/L Anion Gap 7 MEQ/L Lipase 52364 U/L MDM Medical Record Reviewed: Yes Supervised Visit with GERARD: Yes Narrative Course I, Dr. Mata, have reviewed the advance practice practitioner's documentation and am in agreement, met with the patient face to face, made the diagnosis, and the medical decision making was done by me. The patient was initially evaluated by Lurdes, the nurse practitioner. Please see their complete history and physical. *My assessment and Findings: The patient presents with abdominal pain in the left upper quadrant of the abdomen. The patient reports that the pain is similar to when he has had pancreatitis in the past. The patient reports that he continues to drink alcohol. The patient reports that the pain began a few hours after drinking alcohol. The patient's examination is remarkable for midepigastric and left upper quadrant abdominal pain. During the course of the patient's emergency department visit, the patient's history, examination, and differential diagnosis were reviewed with the patient. The patient was placed on a air sampling and monitoring with oximetry and frequent blood pressure monitoring. The patient had IV access obtained and blood work sent for analysis. The patient was initially provided normal saline 1 L IV fluid bolus, initially Toradol for pain, Compazine 5 mg IV for nausea The patient's laboratory studies were reviewed and remarkable for a white count of 14.9, hemoglobin 15.1, platelets 154 with 83.5 neutrophils, CMP is remarkable for glucose of 174, BUN 25, lipase is elevated at 16,245. Radiology studies were reviewed and remarkable for Last Impressions Abdomen/Pelvis CT 12/02/172058 Signed Impressions: CONCLUSION: 1. Moderate degree of acute pancreatitis. The patient's prior study from 2017 also demonstrated acute pancreatitis at that time. 2. Significant fatty infiltration of liver. The patient's case was checked out to me at the conclusion of Lurdes shift. The patient's laboratory studies and examination are consistent with pancreatitis, pancreatitis is confirmed on CT scan. A call was placed out to the [facility] residents for admission. The patient's results were discussed with the patient, including the plan of care. I explained that further testing and/ or monitoring is indicated based on the patient's history, examination, and/ or laboratory findings. Therefore, I recommended admission for additional evaluation. The patient expressed understanding and was agreeable with this plan. The patient was admitted to the hospital in stable condition and sent to a bed under the care of the [facility] residents. Physician Communication Physician Communication The patient's case including history, pertinent physical examination findings, and laboratory studies were discussed with the [facility] residents. It was agreed that the patient would be admitted to the [facility] residents service. Diagnosis Primary Impression: Acute pancreatitis Qualified Codes: K85.20 - Alcohol induced acute pancreatitis without necrosis or infection Additional Impression: Alcohol abuse Admitting Information Admitting Physician Requests: Admit Condition: Stable Luci Mata MD December 02, 2017 23:34
[2017-12-03] MEDS ORDERED: MAGNESIUM HYDROXIDE SUSP 30 ML CUP PO PRN
[2017-12-03] MEDS ORDERED: BISACODYL 10 MG SUPP RECTAL PRN
[2017-12-03] MEDS ORDERED: SENNOSIDES 8.6 MG TAB PO PRN
[2017-12-03] MEDS ORDERED: LACTULOSE SYRUP 20 GM/30 ML CUP PO PRN
[2017-12-03] MEDS ORDERED: NALOXONE HCL 0.4 MG/ML AMP IV PUSH PRN
[2017-12-03] MEDS ORDERED: HYDROmorphone HCL PF 2 MG/ML VIAL IV PUSH PRN (00:45)
[2017-12-03] MEDS ORDERED: PROMETHAZINE INJ 25 MG/ML VIAL IM PRN (00:45)
[2017-12-03] MEDS ORDERED: LORazepam 1 MG TAB PO PRN (00:45)
[2017-12-03] MEDS ORDERED: FLUMAZENIL 0.5 MG/5 ML VIAL IV PUSH PRN (00:45)
[2017-12-03] MEDS ORDERED: ONDANSETRON ODT 4 MG TAB PO PRN (00:45)
[2017-12-03] MEDS ORDERED: SODIUM CHLORIDE 0.9% FLUSH 10 ML FLUSH IV FLUSH PRN (00:45)
[2017-12-03] MEDS ORDERED: KETOROLAC TROMETHAMINE 30 MG/ML (IVP) VIAL IVP PRN (00:45)
[2017-12-03] MEDS ORDERED: LORazepam 2 MG TAB PO PRN (00:45)
[2017-12-03] MEDS ORDERED: cloNIDine HCL 0.1 MG TAB PO PRN (00:45)
[2017-12-03] MEDS ORDERED: LORazepam 2 MG/ML VIAL IV PUSH PRN ×4 (00:45)
[2017-12-03] MEDS ORDERED: HALOPERIDOL LACTATE 5 MG/ML AMP IM PRN (00:45)
[2017-12-03] MEDS ORDERED: MORPHINE SULFATE 4 MG/ML INJ IV PUSH PRN (01:15)
[2017-12-03] MEDS: PANTOPRAZOLE SODIUM 40 MG VIAL IV PUSH SCH ×3 (01:27→23:37)
[2017-12-03] MEDS: MORPHINE SULFATE 4 MG/ML INJ IV PUSH PRN ×4 (01:28→23:37)
[2017-12-03] MEDS: SODIUM CHLOR 0.9% 1000 ML INJ 1,000 ML IV SCH ×4 (01:28→19:50)
[2017-12-03] MEDS ORDERED: TERA1CAP3 PO (01:35)
[2017-12-03 02:20] VITALS: BP 153/79; PULSE 50; RESP 17; TEMP 98.9; O2SAT 95
[2017-12-03 04:00] VITALS: BP 127/72; PULSE 55; RESP 17; TEMP 98.8; O2SAT 94
[2017-12-03 04:29] LABS: TRIGLYCERIDES 600 MG/DL (42-150)
[2017-12-03 07:07] LABS: AUTOMATED NEUTROPHIL # 9.6 TH/MM3 (1.8-7.7); BASOPHIL % 0.2 % (0.0-2.0); EOSINOPHIL % 0.1 % (0.0-4.0); HEMATOCRIT 40.8 % (39.0-51.0); HEMOGLOBIN 14.1 GM/DL (13.0-17.0); LYMPHOCYTE # 0.9 TH/MM3 (1.0-4.8); MEAN CORPUSCULAR HEMOGLOBIN 29.7 PG (27.0-34.0); MEAN CORPUSCULAR HGB CONC 34.6 % (32.0-36.0); MEAN PLATELET VOLUME 10.3 FL (7.0-11.0); MONO % 7.8 % (0.0-8.0); MONOCYTE # 0.9 TH/MM3 (0-0.9); NEUT % 83.9 % (16.0-70.0); PLATELET COUNT 148 TH/MM3 (150-450); RED BLOOD COUNT 4.74 MIL/MM3 (4.50-5.90); RED CELL DISTRIBUTION WIDTH 12.8 % (11.6-17.2); WHITE BLOOD COUNT 11.4 TH/MM3 (4.0-11.0)
[2017-12-03 07:31] LABS: ALBUMIN 3.6 GM/DL (3.4-5.0); ALT (GPT) 46 U/L (12-78); AST (GOT) 20 U/L (15-37); BICARBONATE 25.5 MEQ/L (21.0-32.0); BLOOD UREA NITROGEN 24 MG/DL (7-18); CALCIUM 8.1 MG/DL (8.5-10.1); CHLORIDE 106 MEQ/L (98-107); CREATININE 0.87 MG/DL (0.60-1.30); GLOMERULAR FILTRATION RATE 90 ML/MIN (>89); GLUCOSE,RANDOM 165 MG/DL (74-106); SODIUM (NA) 142 MEQ/L (136-145)
[2017-12-03 07:33] LABS: ALKALINE PHOSPHATASE 49 U/L (45-117); TOTAL BILIRUBIN ADULT 0.5 MG/DL (0.2-1.0); TOTAL PROTEIN 6.7 GM/DL (6.4-8.2)
--- NOTE | 2017-12-03 08:00 | HHI.FPPN ---
Subjective Remarks This note is written in conjunction with resident H&P dated 12/02/17. Jone Thomas is a 57yo gentleman with h/o alcoholic pancreatitis admitted for recurrent pancreatitis, after consuming alcoholic beverages. Overnight, he required PRN morphine. This morning, he reports his abdominal pain is much improved. He denies nausea. He feels hungry. He reports his last drink was yesterday, 1-2 drinks (although ETOH level much higher than that). ROS: + abdominal pain, improved. No nausea. No chest pain, no SOB. PMH/PSxH/SocHx/FamHx: Significant for: Pancreatitis. Alcohol abuse. Shoulder and leg surgeries. Fam hx of DM. + marijuana abuse. Objective Vitals Vital Signs Date Time Temp Pulse Resp B/P (MAP) Pulse Ox O2 Delivery O2 Flow Rate FiO2 12/03/17 06:24 21 12/03/17 04:00 98.8 55 17 127/72 (90) 94 12/03/17 02:20 98.9 50 17 153/79 (103) 95 12/02/17 20:40 97.5 59 18 159/66 (97) 99 Result Diagram: 12/03/17 0548 12/03/17 0548 Objective Remarks Significant for: In NAD, no resp distress. Nontoxic. Changes from supine to sit without significant difficulty. +BS, soft, nondistended. Mild tenderness to palpation at epigastrium. No rebound , no guarding. No jaundice. A/P Assessment and Plan 57 y/o w/hx of alcohol abuse admitted for pancreatitis. Discharge Planning Discharge home in 1-2 days, once pain has improved and he is tolerating diet. Attending Attestation Patient seen, examined, and discussed with resident team. The patient has been seen and examined. The chart and all resident notes have been reviewed. I agree that inpatient care is appropriate and that a two midnight stay is expected for the reasons documented in the resident history and physical. I have discussed this with the resident and certify the resident s order for inpatient admission. Problem List: (1) Pancreatitis ICD Codes: K85.90 - Acute pancreatitis without necrosis or infection, unspecified Status: Acute Plan: Elevated WBC count and lipase Seen on CT of abdomen Likely secondary to alcohol abuse, but possibly secondary to triglycerides. Advance diet as tolerated. Protonix IV 40 mg BID Toradol for pain 1-5 Morphine pain 6-10 Morphine for breakthrough Zofran 4 mg PO Q6H PRN (2) Alcohol abuse ICD Codes: F10.10 - Alcohol abuse, uncomplicated Status: Chronic Plan: [facility] protocol Rally pack Alcohol cessation counseling provided today. (3) Steatosis, liver ICD Codes: K76.0 - Fatty (change of) liver, not elsewhere classified Status: Chronic Plan: Discussed CT findings with patient. He may benefit from further testing (hepatitis profile) as an outpatient. (4) Hypertriglyceridemia ICD Codes: E78.1 - Pure hyperglyceridemia Status: Chronic Plan: Discussed diet and exercise changes with patient. Will likely provide him with rx for fibrate at discharge. Problem Qualifiers (1) Pancreatitis: Qualified Codes: K85.90 - Acute pancreatitis without necrosis or infection, unspecified Cassie Maxwell MD December 03, 2017 08:00
[2017-12-03 08:03] VITALS: BP 124/65; PULSE 58; RESP 18; TEMP 98.2; O2SAT 95
[2017-12-03] MEDS ORDERED: REMOVE OLD PATCH T-DERMAL SCH (09:00)
[2017-12-03] MEDS ORDERED: NICOTINE 21 MG/24 HR PATCH T-DERMAL SCH (09:00)
[2017-12-03] MEDS: SODIUM CHLORIDE 0.9% FLUSH 10 ML FLUSH IV FLUSH SCH ×2 (09:02→19:50)
[2017-12-03] MEDS: THIAMINE HCL 100 MG TAB PO SCH (09:03)
[2017-12-03] MEDS: FOLIC ACID 1 MG TAB PO SCH (09:03)
[2017-12-03] MEDS: MULTIVITAMINS/MINERALS THERAPEUTIC TAB PO SCH (09:03)
[2017-12-03] MEDS: SODIUM CHLORIDE 0.9% FLUSH 10 ML FLUSH IV FLUSH PRN ×2 (09:12→12:49)
[2017-12-03 12:02] VITALS: BP 124/69; PULSE 55; RESP 19; TEMP 97.3; O2SAT 96
[2017-12-03] MEDS ORDERED: FENO2.5C PO (12:52)
--- NOTE | 2017-12-03 12:52 | HHI.DCPOC ---
Discharge Care Plan Diagnosis: (1) Acute pancreatitis (2) Alcohol abuse Goals to Promote Your Health * To prevent worsening of your condition and complications * To maintain your health at the optimal level Directions to Meet Your Goals Take your medications as prescribed Follow your dietary instruction Follow activity as directed Keep your appointments as scheduled Take your immunizations and boosters as scheduled If your symptoms worsen call your PCP, if no PCP go to Urgent Care Center or Emergency Room Smoking is Dangerous to Your Health. Avoid second hand smoke Call the 24-hour hour crisis hotline for domestic abuse at Mary Issa MD R3 December 03, 2017 12:52
[2017-12-03 15:47] VITALS: BP 138/70; PULSE 53; RESP 17; TEMP 98; O2SAT 96
[2017-12-03 21:16] VITALS: BP 138/68; PULSE 54; RESP 16; TEMP 98.8; O2SAT 96
[2017-12-04] VITALS: BP 124/71; PULSE 53; RESP 16; TEMP 98.6; O2SAT 94
[2017-12-04] MEDS: SODIUM CHLOR 0.9% 1000 ML INJ 1,000 ML IV SCH ×2 (02:35→09:08)
[2017-12-04 04:00] VITALS: BP 124/71; PULSE 56; RESP 16; TEMP 98.6; O2SAT 94
[2017-12-04] MEDS: MORPHINE SULFATE 4 MG/ML INJ IV PUSH PRN (06:18)
[2017-12-04 08:00] VITALS: BP 158/71; PULSE 69; RESP 20; TEMP 95.7; O2SAT 95
[2017-12-04] MEDS ORDERED: GEMF600T PO (09:03)
--- NOTE | 2017-12-04 09:08 | HHI.FPPN ---
Subjective Remarks Patient reports improved/decreased abdominal pain. He denies nausea or vomiting. He reports tolerating food well. He reports feeling ready for discharge. Discussed discharge planning with patient. Discussed his diet, need for outpt f/u. Objective Vitals Vital Signs Date Time Temp Pulse Resp B/P (MAP) Pulse Ox O2 Delivery O2 Flow Rate FiO2 12/04/17 04:00 98.6 56 16 124/71 (88) 94 12/04/17 00:00 98.6 53 16 124/71 (88) 94 12/03/17 21:16 98.8 54 16 138/68 (91) 96 12/03/17 15:47 98.0 53 17 138/70 (92) 96 12/03/17 12:02 97.3 55 19 124/69 (87) 96 I/O 12/03/17 12/03/17 12/03/17 12/04/17 12/04/17 12/04/17 07:00 15:00 23:00 07:00 15:00 23:00 Intake Total 1000 ml 940 ml Balance 1000 ml 940 ml Intake Oral 940 ml IV Total 1000 ml # Voids 1 2 5 Result Diagram: 12/03/17 0548 12/03/17 0548 Imaging Last Impressions Abdomen/Pelvis CT 12/02/172058 Signed Impressions: CONCLUSION: 1. Moderate degree of acute pancreatitis. The patient's prior study from 2017 also demonstrated acute pancreatitis at that time. 2. Significant fatty infiltration of liver. Objective Remarks GENERAL: This is a sun-tanned M resting in bed in no acute distress. SKIN: No rashes, ecchymoses or lesions. Cool and dry. No jaundice. HEAD: Atraumatic. Normocephalic. EYES: Pupils equal round and reactive. Extraocular motions intact. No scleral icterus. No injection or drainage. ENT: MMM. NECK: Trachea midline. CARDIOVASCULAR: Regular rate and rhythm without murmurs, gallops, or rubs. RESPIRATORY: Clear to auscultation. Breath sounds equal bilaterally. No wheezes , rales, or rhonchi. GASTROINTESTINAL: Abdomen soft, non-tender, non-distended. No rebounding, no guarding. MUSCULOSKELETAL: Extremities without clubbing, cyanosis, or edema. NEUROLOGICAL: Awake and alert. No focal deficits. Motor and sensory grossly within normal limits. Normal speech. A/P Assessment and Plan 57 y/o with hypertriglyceridemia admitted for pancreatitis. Discharge Planning Discharge home today given that his pain has improved and he is tolerating diet. Problem List: (1) Pancreatitis ICD Codes: K85.90 - Acute pancreatitis without necrosis or infection, unspecified Status: Acute Plan: Diet advanced and tolerated. Lipase trended down. Abdominal pain almost completely resolved. Discharge with prescription for gemfibrozil p.o. twice daily with instructions to start it when he was abdominal pain has completely resolved. Recommended outpatient primary care follow-up. Protonix IV 40 mg BID Toradol for pain 1-5 Morphine pain 6-10 Morphine for breakthrough Zofran 4 mg PO Q6H PRN (2) Steatosis, liver ICD Codes: K76.0 - Fatty (change of) liver, not elsewhere classified Status: Chronic Plan: Discussed CT findings with patient. He may benefit from fibrate medication for hypertriglyceridemia, outpatient follow-up (3) Hypertriglyceridemia ICD Codes: E78.1 - Pure hyperglyceridemia Status: Chronic Plan: Discussed diet and exercise changes with patient. Provided him with Rx for fibrate at discharge. Problem Qualifiers (1) Pancreatitis: Qualified Codes: K85.90 - Acute pancreatitis without necrosis or infection, unspecified Crow Avila MD R2 December 04, 2017 09:08
[2017-12-04] MEDS: THIAMINE HCL 100 MG TAB PO SCH (09:27)
[2017-12-04] MEDS: MULTIVITAMINS/MINERALS THERAPEUTIC TAB PO SCH (09:27)
[2017-12-04] MEDS: FOLIC ACID 1 MG TAB PO SCH (09:27)
[2017-12-04] MEDS: SODIUM CHLORIDE 0.9% FLUSH 10 ML FLUSH IV FLUSH SCH (09:28)
== END 2017-12-04 13:00 | disposition home or self-care (01) | DRG 440 ==
LOC: NEPE 20:36 → NEDA 23:25 → NEPHCDU 12-03 02:18
PROVIDERS: ADMIT Family Medicine; ATTEND Family Medicine
DX: K85.20 Alcohol induced acute pancreatitis without necrosis or infection (principal); K76.0 Fatty (change of) liver, not elsewhere classified; F10.10 Alcohol abuse, uncomplicated; E78.1 Pure hyperglyceridemia
CPT/HCPCS: 74177; 80053; 80307; 82948; 83615; 83690; 84478; 85025; 85610; 85730; 96361; 96374; 96375; C9113; J0780; J1200; J1885; J2270; J7030; Q9967

== ENCOUNTER 2018-03-12 09:43 | Observation (INO) ==
[2018-03-12] MEDS ORDERED: Sod Chloride 0.9% Inj 1,000 ML IV.SIG ONE (10:17)
[2018-03-12] MEDS ORDERED: Morphine Inj 4 MG/ML Vial IV.PUSH ONE (10:17)
[2018-03-12 10:52] LABS: Baso % (Auto) 0.3 % (0.0-2.0); Eos % (Auto) 0.1 % (0.0-4.0); Hematocrit 46.1 % (39.0-51.0); Hemoglobin 16.1 gm/dL (13.0-17.0); Lymph # (Auto) 0.8 th/mm3 (1.0-4.8); Lymph % (Auto) 7.3 % (9.0-44.0); Mean Corpuscular HGB Conc 34.9 % (32.0-36.0); Mean Corpuscular Hemoglobin 30.3 pg (27.0-34.0); Mean Corpuscular Volume 86.9 fL (80.0-100.0); Mean Platelet Volume 9.6 fL (7.0-11.0); Mono # (Auto) 0.8 th/mm3 (0.0-0.9); Mono % (Auto) 7.3 % (0.0-8.0); Neut # (Auto) 9.2 th/mm3 (1.8-7.7); Platelet Count 189 th/mm3 (150-450); White Blood Count 10.8 th/mm3 (4.0-11.0)
[2018-03-12 11:23] LABS: Alanine Aminotransferase 33 U/L (12-78)
[2018-03-12 11:26] LABS: Albumin 4.3 g/dL (3.4-5.0); Anion Gap 11 meq/L (5-15); Aspartate Aminotransferase 25 U/L (15-37); Blood Urea Nitrogen 20 mg/dL (7-18); Calcium 9.1 mg/dL (8.5-10.1); Carbon Dioxide 25.5 meq/L (21.0-32.0); Chloride 102 meq/L (98-107); Glomerular Filtration Rate Greater Than 89 mL/min (>89); Glucose,Random 146 mg/dL (74-106); Potassium 4.2 meq/L (3.5-5.1); Sodium 138 meq/L (136-145)
[2018-03-12 11:28] LABS: Alkaline Phosphatase 72 U/L (45-117); Lipase 17273 U/L (73-393); Total Protein 8.1 g/dL (6.4-8.2)
--- NOTE | 2018-03-12 12:04 | US ---
EXAM DATE: 03/12/2018 11:43 AM EDT AGE/SEX: 57 years / Male INDICATIONS: Right upper quadrant pain. CLINICAL DATA: This is the patient's initial encounter. Patient reports that signs and symptoms have been present for 1 day and indicates a pain score of 8/10. MEDICAL/SURGICAL HISTORY: Pancreatitis. . Left leg reconstruction. COMPARISON: [facility] [place], CT ABDOMEN & PELVIS W CONTRAST, 12/02/2017. . MEASUREMENTS: Liver:__ 18.8 cm. Common Duct:__ 5mm. Right Kidney:__ 14.0 x 7.8 x 6.0 cm. FINDINGS: Liver: Increased echotexture without focal lesion or ductal dilation. Common Duct: No intraluminal mass or stone visualized. Gallbladder: Distended without mobile stones. Pancreas: Swollen without discrete mass Other: None. CONCLUSION: Edematous appearance of the pancreatic parenchyma. Mild nonspecific gallbladder distention. Electronically signed by: Kobe Patterson MD 03/12/2018 12:02 PM EDT
--- NOTE | 2018-03-12 12:17 | ED ---
HPI General Chief Complaint: Abdominal Pain Stated Complaint: Abdominal pain Time Seen by Provider: 03/12/18 10:07 Source: patient Mode of arrival: ambulatory Limitations: no limitations History of Present Illness HPI narrative: The patient is a 57-year-old male that was sent from the [place] for evaluation possible pancreatitis. Patient has several bouts of pancreatitis in the past likely secondary to chronic alcohol use and he has been having pain for the past 4 days that has progressively getting worse. Friday night he had some rum and coke and yesterday he ate some grilled sausage and after that he had a severe excruciating pain in the epigastric area. Pain is more dull today 5 out of 10. He denies any vomiting but does have nausea. No other complaints. MD complaint: abdominal pain Onset (ago): day(s) (4) Pain Consistency: constant Location: epigastric Severity: moderate Severity scale (1-10): 5 Quality: sharp Radiation: epigastric Migration to: no migration Relieving factors: nothing Exacerbating factors: eating Context: history of similar episodes Associated symptoms: nausea Related Data Allergies Allergy/AdvReac Type Severity Reaction Status Date / Time No Known Allergies Allergy Verified 03/12/18 10:02 Review of Systems ROS: all other systems reviewed are negative [facility] Medical History Medical History Pancreatitis (Acute) Social History Social History Substance History: No History of Abuse Second Hand Smoke Exposure: No Smoking Status: Never smoker How Often Do You Have a Drink Containing Alcohol: 2 to 4 times a month Recent Travel in [facility] within the Last 8 Weeks: No Recent Out of Country Travel within the Last 8 Weeks: No Substance Abuse Detail Marijuana: Substance Use Status: Active Route Used Substance Abuse: Inhalation Immunization History Tetanus Immunization: <5 Years Hx Influenza Vaccine This Season: Yes Exam Narrative Exam Narrative: GENERAL: Alert and oriented in no distress SKIN: Focused skin assessment warm/dry. HEAD: Atraumatic. Normocephalic. EYES: Pupils equal and round. No scleral icterus. No injection or drainage. ENT: No nasal bleeding or discharge. Mucous membranes pink and moist. NECK: Trachea midline. No JVD. CARDIOVASCULAR: Regular rate and rhythm. No murmur appreciated. RESPIRATORY: No accessory muscle use. Clear to auscultation. Breath sounds equal bilaterally. GASTROINTESTINAL: Abdomen soft, with epigastric tenderness to palpation., nondistended. Hepatic and splenic margins not palpable. MUSCULOSKELETAL: No obvious deformities. No clubbing. No cyanosis. No edema. Old skin graft from a previous injury on the left lower leg. NEUROLOGICAL: Awake and alert. No obvious cranial nerve deficits. Motor grossly within normal limits. Normal speech. PSYCHIATRIC: Appropriate mood and affect; insight and judgment normal. Course Hospital Course: leukocytosis. His glucose is within normal limitsPerson patient with acute pancreatitis. He received IV fluids and morphine for analgesia as well as Zofran nausea. Markedly elevated lipase above 17,000. The patient will be admitted for acute pancreatitis. Reevaluation(s) Reevaluation #1: Patient feels better after he received morphine IV. Was notified that that he will be admitted for acute pancreatitis markedly elevated Time: 11:45 Initial Documented Vital Signs Temperature 98.0 F 03/12/18 09:58 Pulse Rate 53 L 03/12/18 09:58 Respiratory Rate 16 03/12/18 09:58 Blood Pressure 121/59 L 03/12/18 09:58 Pulse Oximetry 98 03/12/18 09:58 Last Documented Vital Signs Temperature 98.0 F 03/12/18 09:58 Pulse Rate 53 L 03/12/18 09:58 Respiratory Rate 16 03/12/18 09:58 Blood Pressure 121/59 L 03/12/18 09:58 Pulse Oximetry 98 03/12/18 09:58 Medical Decision Making MDM Narrative Medical decision making narrative: Markedly elevated lipase. No leukocytosis. Ultrasound did not reveal any biliary obstruction. He does have gallstones. There is no signs of acute cholecystitis. Analgesia provided. Hydration provided. Antiemetics given. Patient will be admitted for further evaluation and treatment. Medical Screen Exam Complete: Yes Emergency Medical Condition: Yes Medical Records Medical records reviewed: Yes I reviewed the patient's medical records. Lab Data Lab results reviewed: Yes I reviewed the patient's lab results. Result diagrams: 03/12/18 10:30 03/12/18 10:30 Lab Results 03/12/18 03/12/18 Range/Units 10:30 10:30 WBC 10.8 (4.0-11.0) th/mm3 RBC 5.30 (4.50-5.90) mil/mm3 Hgb 16.1 (13.0-17.0) gm/dL Hct 46.1 (39.0-51.0) % MCV 86.9 (80.0-100.0) fL MCH 30.3 (27.0-34.0) pg MCHC 34.9 (32.0-36.0) % RDW 13.0 (11.6-17.2) % Plt Count 189 (150-450) th/mm3 MPV 9.6 (7.0-11.0) fL Neut % (Auto) 85.0 H (16.0-70.0) % Lymph % (Auto) 7.3 L (9.0-44.0) % [place] % (Auto) 7.3 (0.0-8.0) % Eos % (Auto) 0.1 (0.0-4.0) % Baso % (Auto) 0.3 (0.0-2.0) % Neut # (Auto) 9.2 H (1.8-7.7) th/mm3 Lymph # (Auto) 0.8 L (1.0-4.8) th/mm3 [place] # (Auto) 0.8 (0.0-0.9) th/mm3 Eos # (Auto) 0.0 (0.0-0.4) th/mm3 Baso # (Auto) 0.0 (0.0-0.2) th/mm3 WBC Differential . Differential Comment Auto diff final Sodium 138 (136-145) meq/L Potassium 4.2 (3.5-5.1) meq/L Chloride 102 (98-107) meq/L Carbon Dioxide 25.5 (21.0-32.0) meq/L Anion Gap 11 (5-15) meq/L BUN 20 H (7-18) mg/dL Creatinine 0.81 (0.60-1.30) mg/dL Estimated GFR Greater than 89 (>89) mL/min Random Glucose 146 H (74-106) mg/dL Calcium 9.1 (8.5-10.1) mg/dL Total Bilirubin 0.7 (0.2-1.0) mg/dL AST 25 (15-37) U/L ALT 33 (12-78) U/L Alkaline Phosphatase 72 (45-117) U/L Total Protein 8.1 (6.4-8.2) g/dL Albumin 4.3 (3.4-5.0) g/dL Lipase 47436 H (73-393) U/L Serum Alcohol Less than 3 (0-5) mg/dL Imaging Data Radiologist's impression: Pancreas Ultrasound 03/12/18 10:41 CONCLUSION: Edematous appearance of the pancreatic parenchyma. Mild nonspecific gallbladder distention. Discharge Plan Discharge Disposition Patient Disposition: 30 Still Patient Discharge Condition Condition: Good Discharge Details Diagnosis: Pancreatitis Physicians Team ED Provider: Tee Combs Primary Care Provider: [facility],Physician 's Attending Provider: Maegan Ortez Discharge Interventions Interventions: Vital Signs Last Done: 03/12/18 09:58 Status ED Status: Admitted Patient
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
[2018-03-12] MEDS ORDERED: Naloxone Inj 0.4 MG/ML Vial IV.PUSH PRN (13:15)
[2018-03-12] MEDS ORDERED: Morphine Inj 4 MG/ML Vial IV.PUSH PRN (13:15)
[2018-03-12] MEDS ORDERED: Ketorolac Inj 30 MG/ML (IVP) Vial IV.PUSH PRN (13:56)
[2018-03-12] MEDS ORDERED: Haloperidol Inj 5 MG/ML Ampul IV.PUSH PRN (14:59)
[2018-03-12] MEDS ORDERED: LORazepam 1 MG Tablet PO PRN (14:59)
[2018-03-12] MEDS: Morphine Inj 4 MG/ML Vial IV.PUSH PRN ×3 (15:58→23:29)
[2018-03-12] MEDS: Sod Chloride 0.9% Inj 1,000 ML IV.CONT SCH ×2 (15:58→23:31)
[2018-03-12] MEDS: Pantoprazole Inj 40 MG Vial IV.PUSH SCH (15:58)
[2018-03-12] MEDS: Senna/Docusate Sodium 8.6/50 MG Tablet PO SCH (20:16)
[2018-03-13] MEDS: Pantoprazole Inj 40 MG Vial IV.PUSH SCH (03:15)
[2018-03-13] MEDS: Morphine Inj 4 MG/ML Vial IV.PUSH PRN (06:08)
[2018-03-13] MEDS: Sod Chloride 0.9% Inj 1,000 ML IV.CONT SCH (06:14)
[2018-03-13 07:53] LABS: Baso # (Auto) 0.1 th/mm3 (0.0-0.2); Baso % (Auto) 0.8 % (0.0-2.0); Eos # (Auto) 0.1 th/mm3 (0.0-0.4); Eos % (Auto) 1.5 % (0.0-4.0); Hematocrit 40.7 % (39.0-51.0); Hemoglobin 14.3 gm/dL (13.0-17.0); Lymph # (Auto) 1.3 th/mm3 (1.0-4.8); Lymph % (Auto) 13.7 % (9.0-44.0); Mean Corpuscular HGB Conc 35.2 % (32.0-36.0); Mean Corpuscular Hemoglobin 30.1 pg (27.0-34.0); Mean Corpuscular Volume 85.6 fL (80.0-100.0); Mean Platelet Volume 10.4 fL (7.0-11.0); Mono # (Auto) 0.9 th/mm3 (0.0-0.9); Mono % (Auto) 9.7 % (0.0-8.0); Neut # (Auto) 6.8 th/mm3 (1.8-7.7); Neut % (Auto) 74.3 % (16.0-70.0); Platelet Count 145 th/mm3 (150-450); Red Blood Count 4.75 mil/mm3 (4.50-5.90); White Blood Count 9.2 th/mm3 (4.0-11.0)
[2018-03-13 08:19] LABS: Anion Gap 10 meq/L (5-15); Blood Urea Nitrogen 13 mg/dL (7-18); Calcium 8.4 mg/dL (8.5-10.1); Carbon Dioxide 25.4 meq/L (21.0-32.0); Chloride 105 meq/L (98-107); Glomerular Filtration Rate Greater Than 89 mL/min (>89); Glucose,Random 114 mg/dL (74-106); Potassium 3.8 meq/L (3.5-5.1); Sodium 140 meq/L (136-145)
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
[2018-03-13] MEDS: Senna/Docusate Sodium 8.6/50 MG Tablet PO SCH (09:40)
== END 2018-03-13 12:06 | disposition home or self-care (01) ==
LOC: NEPC 09:43 → NEDA 12:45 → INTOOBSV 13:13 → N07 14:29
PROVIDERS: ADMIT Family Medicine; ATTEND Family Medicine
DX: F10.10 Alcohol abuse, uncomplicated; R74.8 Abnormal levels of other serum enzymes; R10.13 Epigastric pain; R11.0 Nausea; K86.0 Alcohol-induced chronic pancreatitis; K82.8 Other specified diseases of gallbladder; F12.90 Cannabis use, unspecified, uncomplicated; R73.03 Prediabetes

== ENCOUNTER 2018-03-15 03:03 | Observation (INO) ==
[2018-03-15 03:50] LABS: Hematocrit 39.6 % (39.0-51.0); Hemoglobin 14.4 gm/dL (13.0-17.0); Mean Corpuscular Hemoglobin 30.6 pg (27.0-34.0); Mean Corpuscular Volume 84.4 fL (80.0-100.0); Platelet Count 186 th/mm3 (150-450); Red Cell Distribution Width 12.4 % (11.6-17.2); White Blood Count 8.2 th/mm3 (4.0-11.0)
--- NOTE | 2018-03-15 03:53 | ED ---
HPI General Chief complaint: Chest Pain Stated complaint: Chest pain Time Seen by Provider: 03/15/18 03:45 History of Present Illness HPI narrative: 57-year-old male here for evaluation of chest pain. The patient reports left-sided chest discomfort that started around noon yesterday. The pain radiates to his left shoulder and arm and he states he has a tingling sensation in his left arm. Pain is 8 out of 10, constant, no modifying factors. No dyspnea. No known history of cardiac disease. He had one beer to drink yesterday evening. He states he took 3 full aspirin at around 7:00 PM. He reports family history of cardiac disease in his father and his brother. Related Data Allergies Allergy/AdvReac Type Severity Reaction Status Date / Time No Known Allergies Allergy Verified 03/12/18 10:02 Review of Systems ROS: all other systems reviewed are negative [facility] Social History Social History Substance History: No History of Abuse Second Hand Smoke Exposure: Yes Smoking Status: Never smoker Tobacco Type: Cigarettes How Often Do You Have a Drink Containing Alcohol: 2 to 4 times a month Recent Travel in [facility] within the Last 8 Weeks: No Recent Out of Country Travel within the Last 8 Weeks: No Immunization History Tetanus Immunization: Unsure Hx Influenza Vaccine This Season: No Exam Narrative Exam Narrative: GENERAL: Well-developed, well-nourished, comfortable, no apparent distress. SKIN: Focused skin assessment warm/dry. HEAD: Atraumatic. Normocephalic. EYES: Pupils equal and round. No scleral icterus. No injection or drainage. ENT: Mucous membranes pink and moist. NECK: Trachea midline. No JVD. CARDIOVASCULAR: Regular rate and rhythm. No murmur appreciated. Distal pulses brisk and equal bilaterally. RESPIRATORY: No accessory muscle use. Clear to auscultation. Breath sounds equal bilaterally. GASTROINTESTINAL: Abdomen soft, non-tender, nondistended. Hepatic and splenic margins not palpable. MUSCULOSKELETAL: No obvious deformities. No clubbing. No cyanosis. No edema. NEUROLOGICAL: Awake and alert. No obvious cranial nerve deficits. Motor grossly within normal limits. Normal speech. PSYCHIATRIC: Appropriate mood and affect; insight and judgment normal. Course Initial Documented Vital Signs Temperature 98.2 F 03/15/18 03:09 Pulse Rate 55 L 03/15/18 03:09 Respiratory Rate 18 03/15/18 03:09 Blood Pressure 178/84 H 03/15/18 03:09 Pulse Oximetry 98 03/15/18 03:09 Last Documented Vital Signs Temperature 98.2 F 03/15/18 03:09 Pulse Rate 55 L 03/15/18 03:09 Respiratory Rate 18 03/15/18 03:09 Blood Pressure 178/84 H 03/15/18 03:09 Pulse Oximetry 98 03/15/18 03:09 Medical Decision Making MDM Narrative Medical decision making narrative: Vital signs reviewed. CBC and CMP are unremarkable. Troponin is negative. EKG shows no signs of ischemia. Chest x-ray shows no acute disease. Patient was given sublingual nitroglycerin. He is artery taking 3 full aspirin prior to arrival. On reassessment he is sleeping comfortably. When awoke and he continues to have left chest discomfort and describes it as a cramp. I will give him a dose of Toradol to see if this helps. He will be admitted to the chest pain center for further cardiac evaluation. Medical Screen Exam Complete: Yes Emergency Medical Condition: Yes Differential Diagnosis Differential Diagnosis: ACS, pneumothorax, pericarditis, PE, pneumonia Lab Data Result diagrams: 03/15/18 03:35 03/15/18 03:35 Lab Results 03/15/18 03/15/18 Range/Units 03:35 03:35 WBC 8.2 (4.0-11.0) th/mm3 RBC 4.70 (4.50-5.90) mil/mm3 Hgb 14.4 (13.0-17.0) gm/dL Hct 39.6 (39.0-51.0) % MCV 84.4 (80.0-100.0) fL MCH 30.6 (27.0-34.0) pg MCHC 36.2 H (32.0-36.0) % RDW 12.4 (11.6-17.2) % Plt Count 186 (150-450) th/mm3 MPV 10.0 (7.0-11.0) fL Sodium 140 (136-145) meq/L Potassium 4.0 (3.5-5.1) meq/L Chloride 105 (98-107) meq/L Carbon Dioxide 26.8 (21.0-32.0) meq/L Anion Gap 8 (5-15) meq/L BUN 18 (7-18) mg/dL Creatinine 0.83 (0.60-1.30) mg/dL Estimated GFR Greater than 89 (>89) mL/min Random Glucose 117 H (74-106) mg/dL Calcium 8.8 (8.5-10.1) mg/dL Total Bilirubin 0.4 (0.2-1.0) mg/dL AST 19 (15-37) U/L ALT 31 (12-78) U/L Alkaline Phosphatase 68 (45-117) U/L Troponin I Less than 0.02 L (0.02-0.05) ng/mL Total Protein 7.7 (6.4-8.2) g/dL Albumin 4.0 (3.4-5.0) g/dL Imaging Data Radiologist's impression: Chest X-Ray 03/15/18 04:08 CONCLUSION: The lungs are clear. ECG Data Attestation: I personally reviewed and interpreted this ECG as follows: (Sinus, rate 50, normal axis, normal intervals, no acute ischemic abnormality.) Discharge Plan Discharge Disposition Patient Disposition: 30 Still Patient Discharge Condition Condition: Stable Discharge Details Diagnosis: Chest pain Physicians Team ED Provider: Vince Romo Primary Care Provider: Primary Care LuziCamilla Discharge Instructions Patient Printed Instructions: Chest Pain (ED) Status ED Status: With Doctor
[2018-03-15 04:00] LABS: Mean Corpuscular HGB Conc 36.2 % (32.0-36.0)
[2018-03-15 04:05] LABS: Anion Gap 8 meq/L (5-15); Aspartate Aminotransferase 19 U/L (15-37); Blood Urea Nitrogen 18 mg/dL (7-18); Calcium 8.8 mg/dL (8.5-10.1); Carbon Dioxide 26.8 meq/L (21.0-32.0); Chloride 105 meq/L (98-107); Glomerular Filtration Rate Greater Than 89 mL/min (>89); Glucose,Random 117 mg/dL (74-106); Sodium 140 meq/L (136-145)
[2018-03-15 04:06] LABS: Alanine Aminotransferase 31 U/L (12-78)
[2018-03-15 04:10] LABS: Alkaline Phosphatase 68 U/L (45-117); Total Protein 7.7 g/dL (6.4-8.2)
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
[2018-03-15] MEDS ORDERED: Ketorolac Inj 30 MG/ML (IVP) Vial IV.PUSH ONE (05:34)
[2018-03-15 07:38] LABS: Creatine Kinase 202 U/L (39-308)
--- NOTE | 2018-03-15 07:51 | P.HPCA ---
History of Present Illness Primary Care Physician: [facility] Chief Complaint: Chest pain History of Present Illness: 57-year-old male with history of recent acute pancreatitis discharged 03/13/18 presents emergency room for further evaluation of chest pain. Onset yesterday "morning or mid afternoon." Location left anterior chest. Characterized as a cramp. Mild to moderate in severity. Radiation to left shoulder left upper arm and left axillary area. Left hand and fingertips tingling sensation. No associated symptoms of nausea, vomiting, dyspnea, or diaphoresis. No no precipitating or relieving factors. Denies similar pain in the past. Endorses recently discharged 2 days ago. Instructed to avoid alcohol and increase water intake. Reports drinking one beer and 4 glasses of water last evening while listening to a band. Denies any abdominal discomfort, cramping, or fever. No known coronary artery disease, hypertension, diabetes, or hyperlipidemia. Past cardiac testing No past stress testing. 01/01/17 Echocardiogram-normal left ventricular size. Wall thickness is normal. The left ventricle systolic function is grossly normal on limited imaging. No regional wall motion abnormalities are present. Left ventricular diastolic function parameters are normal. Appears to be tricuspid aortic valve. Mild aortic insufficiency. The inferior vena cava is dilated. There is a greater than 50% respiratory change in dimension of the inferior vena cava (normal). Social history Lifelong non-smoker. Decreasing his alcohol intake, drank one beer yesterday. Occasionally smokes marijuana. No known hypertension, diabetes, hyperlipidemia, or hypertension. Endorses an active lifestyle staying active. Family history Noncontributory for early onset cardiovascular disease. - Diagnosis (1) Atypical chest pain (2) History of pancreatitis (3) Alcohol abuse (4) Marijuana use, episodic Review of Systems All other systems reviewed negative except as stated in HPI PMFSH - History History Provided By: Patient - Medical History Medical History: Medical History (Last Updated 03/15/18 @ 09:08 by GRUPO Oliva) Injury of left lower leg Pancreatitis - Family History Family History: Family History (Last Updated 03/15/18 @ 08:58 by GRUPO Oliva) Father Coronary artery disease Brother Coronary artery disease - Social History I have reviewed the patient's Social History: Yes - Tobacco History Second Hand Smoke Exposure: No Smoking Status: Never smoker Tobacco Type: Cigarettes - Alcohol History How Often Do You Have a Drink Containing Alcohol: 2 to 3 times a week - Substance Use History Substance History: Active Abuse - Substance Use Type Marijuana Route Used: Inhalation Frequency: daily Reason for Use: Calm Down, Feels Good, Get High - Travel History Recent Travel in the [place] Within the Last 8 Weeks: No Recent Travel Out of the Country Within the Last 8 Weeks: No - Immunization History Tetanus Immunization: Unsure Hx Influenza Vaccine This Season: No Medications and Allergies Active Medications: Active Medications Sodium Chloride (Ns Flush) 2 ml IV.FLUSH BID LOBITO Sodium Chloride (Ns Flush) 2 ml IV.FLUSH PRN PRN PRN Reason: FLUSH AFTER USING IV ACCESS Allergies Allergy/AdvReac Type Severity Reaction Status Date / Time No Known Allergies Allergy Verified 03/12/18 10:02 Exam Vital signs: Vital Signs 03/15/18 03:09 Temperature 98.2 F Pulse Rate 55 L Respiratory Rate 18 Blood Pressure 178/84 H Pulse Oximetry 98 Intake & Output 03/14/18 03/15/18 03/15/18 18:59 06:59 18:59 Weight 93.894 kg Narrative: GENERAL: Alert WN, WD, NAD, pleasant, male HEAD: NC, AT CV: RRR, without murmur, rub, gallop, no JVD, S1-S2 no S3-S4. No carotid bruits. Chest wall nontender to palpation. RESP: Clear lungs throughout bilateral, no crackles, wheeze, rhonchi, symmetrical chest rise, nonlabored, able to speak in full sentences ABD: Soft, NT, ND, no masses, positive bowel tones EXT: Pulses +2x4, no dependent edema MS: Normal tone x4 extremities, nontender, obvious surgical deformity left lower leg, full range of motion NEURO: CN II through CN XII grossly intact, motor strength 5/5 PSYCH: A+O x3, pleasant affect, appropriate speech, mood, insight and judgment SKIN: Normal turgor, normal texture, no lesions, no rashes, brisk cap refill, even hair distribution, left lower leg surgical reconstruction scars Results 03/15/18 03:35 03/15/18 03:35 Cardiac Enzymes 03/15/18 03/15/18 Range/Units 03:35 06:32 AST 19 (15-37) U/L Troponin I Less than 0.02 L Less than 0.02 L (0.02-0.05) ng/mL CBC 03/15/18 Range/Units 03:35 WBC 8.2 (4.0-11.0) th/mm3 RBC 4.70 (4.50-5.90) mil/mm3 Hgb 14.4 (13.0-17.0) gm/dL Hct 39.6 (39.0-51.0) % Plt Count 186 (150-450) th/mm3 Comprehensive Metabolic Panel 03/15/18 Range/Units 03:35 Sodium 140 (136-145) meq/L Potassium 4.0 (3.5-5.1) meq/L Chloride 105 (98-107) meq/L Carbon Dioxide 26.8 (21.0-32.0) meq/L BUN 18 (7-18) mg/dL Creatinine 0.83 (0.60-1.30) mg/dL Calcium 8.8 (8.5-10.1) mg/dL AST 19 (15-37) U/L ALT 31 (12-78) U/L Alkaline Phosphatase 68 (45-117) U/L Total Protein 7.7 (6.4-8.2) g/dL Albumin 4.0 (3.4-5.0) g/dL Intake and Output 03/14/18 03/15/18 03/15/18 22:59 06:59 14:59 Other: Weight 93.894 kg EKG interpretations - EKG EKG results cardiology: normal QRS, normal ST/T - Dysrhythmias Sinus rhythms and dysrhythmias: sinus bradycardia (< 50 bpm) Caprini VTE Risk Assessment Caprini VTE Risk Assessment: No/Low Risk (score <= 1) Caprini Risk Assessment Model: Point Value = 1 Point Value = 2 Point Value = 3 Point Value = 5 Age 41-60 Minor surgery BMI > 25 kg/m2 Swollen legs Varicose veins or History of unexplained or recurrent spontaneous Oral contraceptives or hormone replacement Sepsis (< 1 month) Serious lung disease, including pneumonia (< 1 month) Abnormal pulmonary function Acute myocardial infarction Congestive heart failure (< 1 month) History of inflammatory bowel disease Medical patient at bed rest Age 61-74 Arthroscopic surgery Major open surgery (> 45 min) Laparoscopic surgery (> 45 min) Malignancy Confined to bed (> 72 hours) Immobilizing plaster cast Central venous access Age >= 75 History of VTE Family history of VTE Factor V Leiden Prothrombin [id number] Lupus anticoagulant Anticardiolipin antibodies Elevated serum homocysteine Heparin-induced thrombocytopenia Other congenital or acquired thrombophilia Stroke (< 1 month) Elective arthroplasty Hip, pelvis, or leg fracture Acute spinal cord injury (< 1 month) Prophylaxis Regimen: Total Risk Factor Score Risk Level Prophylaxis Regimen 0-1 Low Early ambulation 2 Moderate Order ONE of the following: *Sequential Compression Device (SCD) *Heparin 5000 units SQ BID 3-4 Higher Order ONE of the following medications: *Heparin 5000 units SQ TID *Enoxaparin/Lovenox 40 mg SQ daily (WT < 150 kg, CrCl > 30 mL/min) *Enoxaparin/Lovenox 30 mg SQ daily (WT < 150 kg, CrCl > 10-29 mL/min) *Enoxaparin/Lovenox 30 mg SQ BID (WT < 150 kg, CrCl > 30 mL/min) AND/OR *Sequential Compression Device (SCD) 5 or more Highest Order ONE of the following medications: *Heparin 5000 units SQ TID (Preferred with Epidurals) *Enoxaparin/Lovenox 40 mg SQ daily (WT < 150 kg, CrCl > 30 mL/min) *Enoxaparin/Lovenox 30 mg SQ daily (WT < 150 kg, CrCl > 10-29 mL/min) *Enoxaparin/Lovenox 30 mg SQ BID (WT < 150 kg, CrCl > 30 mL/min) AND *Sequential Compression Device (SCD) Assessment and Plan - Assessment (1) Atypical chest pain Code(s): R07.89 - Other chest pain Status: Acute Plan: Admitted chest pain center. Rule out ACS with 3 sets of EKGs and cardiac enzymes. Will be seen evaluated by Dr. Marcell Fuller. Discomfort atypical cardiac etiology. Further cardiac testing augmentation to follow after evaluation by floor worker. Toradol 30 mg IV given in ER approx 0645. Continue to monitor pain response. (2) History of pancreatitis Code(s): Z87.19 - Personal history of other diseases of the digestive system Status: Acute Plan: Add lipase to specimen in lab. No acute abdominal findings on exam. (3) Alcohol abuse Code(s): F10.10 - Alcohol abuse, uncomplicated Status: Chronic Plan: Reinforced alcohol cessation. (4) Marijuana use, episodic Code(s): F12.90 - Cannabis use, unspecified, uncomplicated Status: Chronic Plan: Strongly encouraged and stressed importance of any forms of smoking, including marijuana use. Instructed would be in his best interest to quit using marijuana. H&P: Quality - VTE Deep Vein Thrombosis/Pulmonary Embolism Present on Admission: No
[2018-03-15 08:38] LABS: Creatine Kinase 249 U/L (39-308)
[2018-03-15 09:04] LABS: Creatine Kinase MB 2.9 ng/mL (0.5-3.6)
--- NOTE | 2018-03-15 09:30 | P.PNCA ---
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 He now presents with left shoulder and arm pain and a tingling numb sensation in his left arm. He reports this is an 8 out of 10 pain which was quite persistent all day long. By 3 in the morning he became concerned and presented to the hospital. Pertinent to note that he had imbibed in alcohol again since his discharge and a repeat amylase was not obtained during his emergency room stay. He has no history of cardiac disease but does have a positive family history. His pain has diminished during his stay but persists to the current time. His troponins are negative and his EKG is noncontributory. 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 He can be followed up with the [facility] where he has established. His evaluation and plans were thoroughly discussed with the nurse practitioner and I am in agreement with documentation as entered Physical Exam Vital signs: Vital Signs 03/15/18 03:09 03/15/18 08:00 Temperature 98.2 F 98.7 F Pulse Rate 55 L 45 L Respiratory Rate 18 18 Blood Pressure 178/84 H 132/67 Pulse Oximetry 98 94 L Intake & Output 03/14/18 03/15/18 03/15/18 18:59 06:59 18:59 Weight 93.894 kg Narrative: Well-nourished well-developed man still complaining of shoulder pain but in no acute distress. Skin is warm and dry head normocephalic atraumatic Eyes PERRLA EOMI Neck supple no JVD masses nodes or bruits Chest clear to auscultation no rales wheezes or rhonchi Cardiovascular regular sinus rhythm with no gallops rubs or murmurs Abdomen slightly tender but no guarding or rebound no masses palpable Otherwise in agreement with nurse practitioner documentation Assessment and Plan - Assessment (1) Atypical chest pain Code(s): R07.89 - Other chest pain Status: Acute Plan: Admitted chest pain center. Rule out ACS with 3 sets of EKGs and cardiac enzymes. Will be seen evaluated by Dr. Marcell Fuller. Discomfort atypical cardiac etiology. Further cardiac testing augmentation to follow after evaluation by medical billing supervisor. Toradol 30 mg IV given in ER approx 0645. Continue to monitor pain response. (2) History of pancreatitis Code(s): Z87.19 - Personal history of other diseases of the digestive system Status: Acute Plan: Add lipase to specimen in lab. Discomfort may be referred pain from recent pancreatitis. (3) Alcohol abuse Code(s): F10.10 - Alcohol abuse, uncomplicated Status: Chronic Plan: Reinforced alcohol cessation. (4) Marijuana use, episodic Code(s): F12.90 - Cannabis use, unspecified, uncomplicated Status: Chronic Plan: Strongly encouraged and stressed importance of any forms of smoking, including marijuana use. Instructed would be in his best interest to quit using marijuana.
[2018-03-15 10:13] LABS: Creatine Kinase 180 U/L (39-308)
--- NOTE | 2018-03-15 13:28 | ECG ---
Date Performed: 03/15/2018 Time Performed: 06:35:59 PTAGE: 57 years EKG: SINUS BRADYCARDIA BORDERLINE ECG PREVIOUS TRACING : 05/13/2017 02.24 DOCTOR: Marcell Fuller Interpretating Date/Time 03/15/2018 13:27:37
--- NOTE | 2018-03-15 13:29 | ECG ---
Date Performed: 03/15/2018 Time Performed: 09:37:45 PTAGE: 57 years EKG: SINUS BRADYCARDIA BORDERLINE ECG PREVIOUS TRACING : 03/15/2018 06.35 DOCTOR: Marcell Fuller Interpretating Date/Time 03/15/2018 13:28:06
--- NOTE | 2018-03-15 13:29 | ECG ---
Date Performed: 03/15/2018 Time Performed: 03:23:34 PTAGE: 57 years EKG: SINUS BRADYCARDIA BORDERLINE ECG INTERPRETATION BASED ON A DEFAULT AGE OF 40 YEARS PREVIOUS TRACING : 05/13/2017 02.24 DOCTOR: Marcell Fuller Interpretating Date/Time 03/15/2018 13:27:52
--- NOTE | 2018-03-15 13:31 | TR ---
Date Performed: 03/15/2018 Time Performed: 10:26:51 DOCTOR: Marcell Fuller DRUG LIST: CLINICAL HISTORY: CHEST PAIN REASON FOR TEST: Chest pain REASON FOR ENDING: OBSERVATION: CONCLUSION: Modified junito protocl completed. Stopped sec to reaching target heart rate and leg fatigue. Maximum WH=654 Max HR Achieved=86.0% Maximum MP=281/80 Total Exercise Time=7:26. No reprod chest pain. Good exercise tolerance. No ectopy. Upsloping st segments. Recovery quick and unremarkabl e. COMMENTS: Low probability of significant ischemic heart disease as a cause of current presentati on
== END 2018-03-15 11:50 | disposition home or self-care (01) ==
LOC: NEPC 03:03 → NEDA 03:03 → NEPFCDU 06:48
PROVIDERS: ADMIT Internal Medicine Interventional Cardiology; ATTEND Internal Medicine Interventional Cardiology